=== PATIENT | female | born 1995 | race Caucasian/White ===

== ENCOUNTER 2016-10-04 23:15 | Emergency (ER) | payer MEDICAID ==
--- NOTE | 2016-10-05 01:35 | ER Document Report ---
ED General - General Chief Complaint: Vaginal Bleeding Stated Complaint: VAGINAL BLEEDING Mode of Arrival: Ambulatory Information source: Patient Notes: 21 yr old female who had a c section 8 week ago, placed on bcp 3 weeks ago presents iwth intermittent bleeding throughout the day. pt unable to see obgyn for another month. denies any severe pain , fevers TRAVEL OUTSIDE OF THE [place] IN LAST 30 DAYS: No - HPI Onset: Other Onset/Duration: Intermittent Quality of pain: Achy Severity: Mild Pain Level: 1 Associated symptoms: Other Exacerbated by: Denies Relieved by: Denies Similar symptoms previously: Yes Recently seen / treated by doctor: Yes - Related Data Allergies/Adverse Reactions: Penicillins Allergy (Severe, Verified 05/08/16 13:58) Anaphylaxis Sulfa (Sulfonamide Antibiotics) Allergy (Mild, Verified 05/08/16 13:58) Unknown reaction Past Medical History - Social History Smoking Status: Never Smoker Cigarette use (# per day): No Chew tobacco use (# tins/day): No Smoking Education Provided: No Frequency of alcohol use: None Drug Abuse: None Family History: Arthritis, DM, Hyperlipidemia, Hypertension, Malignancy, Thyroid Disfunction - Past Medical History Cardiac Medical History: Denies: Hx Hypertension, Hx Pulmonary Embolism, Hx Heart Murmur Pulmonary Medical History: Reports: Hx Asthma - prn inhaler, Hx Pneumonia - Pediatric Denies: Hx Sleep Apnea, Hx Tuberculosis Neurological Medical History: Denies: Hx Cerebrovascular Accident, Hx Seizures Endocrine Medical History: Denies: Hx Hyperthyroidism, Hx Hypothyroidism Renal/ Medical History: Reports: Hx Kidney Stones - in teen years. Denies: Hx Ovarian Cysts, Hx Peritoneal Dialysis, Hx Pelvic Inflammatory Disease Malignancy Medical History: Denies: Hx Breast Cancer, Hx Cervical Cancer, Hx Ovarian Cancer GI Medical History: Denies: Hx Gastroesophageal Reflux Disease, Hx Hiatal Hernia , Hx Ulcer Musculoskeltal Medical History: Denies Hx Fibromyalgia, Reports Hx Musculoskeletal Trauma Psychiatric Medical History: Reports: Hx Depression - hx of /not on meds during preg/to resume post Denies: Hx Bipolar Disorder, Hx Post Traumatic Stress Disorder, Hx Schizophrenia Traumatic Medical History: Denies: Hx Fractures Infectious Medical History: Denies: Hx HIV Past Surgical History: Reports: Hx Section - x2, Hx Cholecystectomy, Hx Orthopedic Surgery - right wrist surgery - Immunizations Immunizations up to date: Yes Hx Diphtheria, Pertussis, Tetanus Vaccination: Yes Review of Systems - Review of Systems Notes: REVIEW OF SYSTEMS: CONSTITUTIONAL : Denies fever, chills, or sweats. Denies recent illness. EENT: Denies eye, ear, throat, or mouth pain or symptoms. Denies nasal or sinus congestion or discharge. Denies throat, tongue, or mouth swelling or difficulty swallowing. CARDIOVASCULAR: Denies chest pain. Denies palpitations or racing or irregular heart beat. Denies ankle edema. RESPIRATORY: Denies cough, cold, or chest congestion. Denies shortness of breath, difficulty breathing, or wheezing. GASTROINTESTINAL: Denies abdominal pain or distention. Denies nausea, vomiting , or diarrhea. Denies blood in vomitus, stools, or per rectum. Denies black, tarry stools. Denies constipation. GENITOURINARY: Denies difficulty urinating, painful urination, burning, frequency, blood in urine, or discharge. FEMALE GENITOURINARY: admits to vaginal bleeding MUSCULOSKELETAL: Denies back or neck pain or stiffness. Denies joint pain or swelling. SKIN: Denies rash, lesions or sores. HEMATOLOGIC : Denies easy bruising or bleeding. LYMPHATIC: Denies swollen, enlarged glands. NEUROLOGICAL: Denies confusion or altered mental status. Denies passing out or loss of consciousness. Denies dizziness or lightheadedness. Denies headache. Denies weakness or paralysis or loss of use of either side. Denies problems with gait or speech. Denies sensory loss, numbness, or tingling. Denies seizures. PSYCHIATRIC: Denies anxiety or stress. Denies depression, suicidal ideation, or homicidal ideation. ALL OTHER SYSTEMS REVIEWED AND NEGATIVE. Dictation was performed using [employer] voice recognition software PHYSICAL EXAMINATION: GENERAL: Well-appearing, well-nourished and in no acute distress. HEAD: Atraumatic, normocephalic. EYES: Pupils equal round and reactive to light, extraocular movements intact, sclera anicteric, conjunctiva are normal. ENT: Nares patent, oropharynx clear without exudates. Moist mucous membranes. NECK: Normal range of motion, supple without lymphadenopathy LUNGS: Breath sounds clear to auscultation bilaterally and equal. No wheezes rales or rhonchi. HEART: Regular rate and rhythm without murmurs ABDOMEN: Soft, nontender, nondistended abdomen. No guarding, no rebound. No masses appreciated. Musculoskeletal: Normal range of motion, no pitting or edema. No cyanosis. NEUROLOGICAL: Cranial nerves grossly intact. Normal speech, normal gait. Normal sensory, motor exams PSYCH: Normal mood, normal affect. SKIN: Warm, Dry, normal turgor, no rashes or lesions noted. Physical Exam - Vital signs Vitals: Temp Pulse Resp BP Pulse Ox 97.8 F 65 20 116/55 L 98 10/04/16 23:52 10/04/16 23:52 10/04/16 23:52 10/04/16 23:52 10/04/16 23:52 Course - Re-evaluation Re-evalutation: 10/05/16 01:35 lab work imaging pending, i have low suspicion for retained products 10/05/16 03:32 Ultrasound noted no acute abnormality, hemoglobin is stable. Patient will be discharged to follow-up with [facility] After performing a Medical Screening Examination, I estimate there is LOW risk for ACUTE APPENDICITIS, BOWEL OBSTRUCTION, ACUTE CHOLECYSTITIS, PERFORATED DIVERTICULITIS, INCARCERATED HERNIA, PANCREATITIS, PELVIC INFLAMMATORY DISEASE, PERFORATED ULCER, ECTOPIC , or TUBO-OVARIAN ABSCESS, thus I consider the discharge disposition reasonable. Also, there is no evidence or peritonitis , sepsis, or toxicity. The patient and I have discussed the diagnosis and risks , and we agree with discharging home with close follow-up with the understanding that symptoms and presentations can change. We also discussed returning to the Emergency Department immediately if new or worsening symptoms occur. We have discussed the symptoms which are most concerning (e.g., bloody stool, fever, changing or worsening pain, vomiting) that necessitate immediate return. - Vital Signs Vital signs: Temp Pulse Resp BP Pulse Ox 97.8 F 65 20 116/55 L 98 10/04/16 23:52 10/04/16 23:52 10/04/16 23:52 10/04/16 23:52 10/04/16 23:52 - Laboratory Result Diagrams: 10/05/16 01:34 10/05/16 01:34 Laboratory results interpreted by me: 10/05/16 10/05/16 01:34 01:34 Hgb 10.5 L Hct 33.6 L MCH 25.1 L MCHC 31.3 L RDW 18.1 H Albumin 3.4 L - Diagnostic Test Radiology reviewed: Image reviewed, Reports reviewed Discharge - Discharge Clinical Impression: Vaginal bleeding Hypertension Qualifiers: Hypertension type: essential hypertension Qualified Code(s): I10 - Essential ( primary) hypertension Condition: Stable Disposition: HOME, SELF-CARE Instructions: Vaginal Bleeding ([facility]) Referrals: LUCHO MEEK MD [Primary Care Provider] - Follow up in 3-5 days
[2016-10-05 01:57] LABS: ABSOLUTE EOSINOPHILS # (AUTO) 0.3 10^3/uL (0.0-0.6); ABSOLUTE LYMPHOCYTES (AUTO) 3.8 10^3/uL (0.5-4.7); ABSOLUTE MONOCYTES (AUTO) 0.7 10^3/uL (0.1-1.4); ABSOLUTE NEUT (AUTO) 5.4 10^3/uL (1.7-8.2); BASOPHILS % (AUTO) 0.3 % (0-2); EOSINOPHILS % (AUTO) 2.8 % (0-6); HEMATOCRIT 33.6 % (36.0-47.0); HEMOGLOBIN 10.5 g/dL (12.0-15.5); HGB HCT DIFFERENCE -2.1; LYMPHOCYTES % (AUTO) 36.9 % (13-45); MEAN CORPUSCULAR HEMOGLOBIN 25.1 pg (27.0-33.4); MEAN CORPUSCULAR HGB CONC 31.3 g/dL (32.0-36.0); MEAN CORPUSCULAR VOLUME 80 fl (80-97); MONOCYTES % (AUTO) 6.5 % (3-13); RED CELL DISTRIBUTION WIDTH 18.1 % (11.5-14.0); SEGMENTED NEUTROPHILS % (AUTO) 53.5 % (42-78); WHITE BLOOD COUNT 10.2 10^3/uL (4.0-10.5)
[2016-10-05 02:02] LABS: ALANINE AMINOTRANSFERASE 25 U/L (9-52); ALBUMIN 3.4 g/dL (3.5-5.0); ALKALINE PHOSPHATASE 93 U/L (38-126); ANION GAP 11 (5-19); ASPARTATE AMINO TRANSFERASE 19 U/L (14-36); BILIRUBIN,TOTAL 0.2 mg/dL (0.2-1.3); BLOOD UREA NITROGEN 15 mg/dL (7-20); CALCIUM 9.1 mg/dL (8.4-10.2); CARBON DIOXIDE 29 mmol/L (22-30); CHLORIDE 102 mmol/L (98-107); GLUCOSE 79 mg/dL (75-110); POTASSIUM 3.9 mmol/L (3.6-5.0); SODIUM 142.4 mmol/L (137-145); TOTAL PROTEIN 6.6 g/dL (6.3-8.2)
[2016-10-05 04:39] VITALS: BP 114/64
== END 2016-10-05 04:38 | disposition home or self-care (01) ==
LOC: ER 23:15
DX: N93.9 Abnormal uterine and vaginal bleeding, unspecified (principal); I10 Essential (primary) hypertension
CPT/HCPCS: 36415; 76830; 80053; 84702; 85025; 99284

== ENCOUNTER 2016-10-26 19:35 | Emergency (ER) | payer MEDICAID ==
[2016-10-26] MEDS ORDERED: IBUPROFEN 800 MG TABLET PO ONE (19:46)
--- NOTE | 2016-10-26 19:46 | ER Document Report ---
ED Medical Screen (RME) - General Chief Complaint: Cold Symptoms Stated Complaint: SORE THROAT/WEAKNESS Time seen by provider: 19:43 Mode of Arrival: Ambulatory Information source: Patient Notes: 21-year-old female presents to ED for cold symptoms for week with sore throat. States she still eating and drinking fluids. States she's not had a period since 09/24/2069. States she started getting dizzy this morning. Complains of both ear went to urgent care about 2 weeks ago and was told she had fluid around her eardrums that she did not have an ear infection. States that the ears got better the pain went away within a few days ago the right ear started hurting again. I have greeted and performed a rapid initial assessment of this patient. A comprehensive ED assessment and evaluation of the patient, analysis of test results and completion of medical decision making process will be conducted by an additional ED providers. TRAVEL OUTSIDE OF THE [place] IN LAST 30 DAYS: No - Related Data Allergies/Adverse Reactions: Penicillins Allergy (Severe, Verified 10/26/16 19:41) Anaphylaxis Sulfa (Sulfonamide Antibiotics) Allergy (Mild, Verified 10/26/16 19:41) Unknown reaction Past Medical History - Past Medical History Cardiac Medical History: Denies: Hx Hypertension, Hx Pulmonary Embolism, Hx Heart Murmur Pulmonary Medical History: Reports: Hx Asthma - prn inhaler, Hx Pneumonia - Pediatric Denies: Hx Sleep Apnea, Hx Tuberculosis Neurological Medical History: Denies: Hx Cerebrovascular Accident, Hx Seizures Endocrine Medical History: Denies: Hx Hyperthyroidism, Hx Hypothyroidism Renal/ Medical History: Reports: Hx Kidney Stones - in teen years. Denies: Hx Ovarian Cysts, Hx Peritoneal Dialysis, Hx Pelvic Inflammatory Disease Malignancy Medical History: Denies: Hx Breast Cancer, Hx Cervical Cancer, Hx Ovarian Cancer GI Medical History: Denies: Hx Gastroesophageal Reflux Disease, Hx Hiatal Hernia , Hx Ulcer Musculoskeltal Medical History: Denies Hx Fibromyalgia, Reports Hx Musculoskeletal Trauma Psychiatric Medical History: Reports: Hx Depression - hx of /not on meds during preg/to resume post Denies: Hx Bipolar Disorder, Hx Post Traumatic Stress Disorder, Hx Schizophrenia Traumatic Medical History: Denies: Hx Fractures Infectious Medical History: Denies: Hx HIV Past Surgical History: Reports: Hx Section - x2, Hx Cholecystectomy, Hx Oral Surgery - WISDOM, Hx Orthopedic Surgery - right wrist surgery - Immunizations Immunizations up to date: Yes Hx Diphtheria, Pertussis, Tetanus Vaccination: Yes Physical Exam - Vital signs Vitals: Temp Pulse Resp BP Pulse Ox 98.0 F 95 19 125/70 98 10/26/16 19:39 10/26/16 19:39 10/26/16 19:39 10/26/16 19:39 10/26/16 19:39 Course - Vital Signs Vital signs: Temp Pulse Resp BP Pulse Ox 98.0 F 95 19 125/70 98 10/26/16 19:39 10/26/16 19:39 10/26/16 19:39 10/26/16 19:39 10/26/16 19:39
--- NOTE | 2016-10-26 20:22 | ER Document Report ---
ED General - General Chief Complaint: Sore Throat Stated Complaint: SORE THROAT/WEAKNESS Time seen by provider: 20:20 Mode of Arrival: Ambulatory Information source: Patient Notes: This is a 21-year-old female that presents to the emergency room with nonproductive cough, right ear pain, sore throat, weakness and dizziness. Patient states that the weakness and dizziness started today. She denies headache, neck stiffness, photophobia. TRAVEL OUTSIDE OF THE [place] IN LAST 30 DAYS: No - HPI Onset: Just prior to arrival Onset/Duration: Gradual Quality of pain: No pain Severity: None Pain Level: Denies Associated symptoms: Chills, Fever, Other - Right earache. denies: Shortness of breath Exacerbated by: Denies Relieved by: Denies Similar symptoms previously: No Recently seen / treated by doctor: Yes - Related Data Allergies/Adverse Reactions: Penicillins Allergy (Severe, Verified 10/26/16 19:41) Anaphylaxis Sulfa (Sulfonamide Antibiotics) Allergy (Mild, Verified 10/26/16 19:41) Unknown reaction Past Medical History - General Information source: Patient - Social History Smoking Status: Never Smoker Cigarette use (# per day): No Chew tobacco use (# tins/day): No Frequency of alcohol use: None Drug Abuse: None Lives with: Family Family History: Arthritis, DM, Hyperlipidemia, Hypertension, Malignancy, Thyroid Disfunction Patient has suicidal ideation: No Patient has homicidal ideation: No - Past Medical History Cardiac Medical History: Denies: Hx Hypertension, Hx Pulmonary Embolism, Hx Heart Murmur Pulmonary Medical History: Reports: Hx Asthma - prn inhaler, Hx Pneumonia - Pediatric Denies: Hx Sleep Apnea, Hx Tuberculosis Neurological Medical History: Denies: Hx Cerebrovascular Accident, Hx Seizures Endocrine Medical History: Denies: Hx Hyperthyroidism, Hx Hypothyroidism Renal/ Medical History: Reports: Hx Kidney Stones - in teen years. Denies: Hx Ovarian Cysts, Hx Peritoneal Dialysis, Hx Pelvic Inflammatory Disease Malignancy Medical History: Denies: Hx Breast Cancer, Hx Cervical Cancer, Hx Ovarian Cancer GI Medical History: Denies: Hx Gastroesophageal Reflux Disease, Hx Hiatal Hernia , Hx Ulcer Musculoskeltal Medical History: Denies Hx Fibromyalgia, Reports Hx Musculoskeletal Trauma Psychiatric Medical History: Reports: Hx Depression - hx of /not on meds during preg/to resume post Denies: Hx Bipolar Disorder, Hx Post Traumatic Stress Disorder, Hx Schizophrenia Traumatic Medical History: Denies: Hx Fractures Infectious Medical History: Denies: Hx HIV Past Surgical History: Reports: Hx Section - x2, Hx Cholecystectomy, Hx Oral Surgery - WISDOM, Hx Orthopedic Surgery - right wrist surgery - Immunizations Immunizations up to date: Yes Hx Diphtheria, Pertussis, Tetanus Vaccination: Yes Review of Systems - Review of Systems Notes: Review of systems: Constitutional: Positive for chills, denies fever (patient states she rarely if ever gets fever). EENT: Positive for right ear pain and sinus congestion. Positive for throat pain. She denies any difficulty swallowing. Cardiovascular: Denies chest pain, palpitations, dyspnea or edema. Respiratory: Denies wheezing, cough, hemoptysis. Abdomen: Denies abdominal pain, nausea, vomiting, diarrhea. Denies BRBPR or melena. Genitourinary: Denies dysuria, pyuria, hematuria, flank pain. Musculoskeletal: denies joint pain or swelling, denies back pain. Neurologic: Denies headache, photophobia, neck stiffness, weakness. Denies loss of bowel or bladder function. Denies saddle anesthesia. Skin: Denies rash, lesions. Physical Exam - Vital signs Vitals: Temp Pulse Resp BP Pulse Ox 98.0 F 95 19 125/70 98 10/26/16 19:39 10/26/16 19:39 10/26/16 19:39 10/26/16 19:39 10/26/16 19:39 Notes: Physical exam: GENERAL: 21-year-old female, alert and oriented 3, no acute distress HEAD: Atraumatic, normocephalic. EYES: Pupils equal round and reactive to light, extraocular movements intact, sclera anicteric, conjunctiva are normal. ENT: Left TM normal, right TM is erythematous and cloudy with some bulging, nares patent, oropharynx mildly erythematous without exudates. Moist mucous membranes. NECK: Normal range of motion, supple without lymphadenopathy or JVD. LUNGS: Breath sounds clear to auscultation bilaterally and equal. No wheezes rales or rhonchi. HEART: Regular rate and rhythm without murmurs, rubs or gallops. ABDOMEN: Soft, normoactive bowel sounds. No tenderness to palpation. No guarding, no rebound. No masses appreciated. EXTREMITIES: Normal range of motion, no pitting or edema. No clubbing or cyanosis. NEUROLOGICAL: Cranial nerves II through XII grossly intact. Normal speech, normal gait. PSYCH: Normal mood, normal affect. SKIN: Warm, Dry, normal turgor, no rashes or lesions noted. Course - Vital Signs Vital signs: Temp Pulse Resp BP Pulse Ox 98.4 F 87 20 133/66 H 99 10/26/16 23:25 10/26/16 23:25 10/26/16 23:25 10/26/16 23:25 10/26/16 23:25 - Laboratory Laboratory results interpreted by me: 10/26/16 20:50 Urine Ketones TRACE H Ur Leukocyte Esterase TRACE H Discharge - Discharge Clinical Impression: right otitis media Condition: Stable Disposition: HOME, SELF-CARE Additional Instructions: Recommendations: Rest, drink plenty of fluids May take Mucinex [id number] Azithromycin as prescribed Follow-up with your primary care doctor in the next 3-5 days. Return to the emergency room for any worsening pain or concerns he getting worse. Prescriptions: Azithromycin [Zithromax 250 mg Tablet] 250 mg PO ASDIR PRN #6 tablet PRN Reason: Referrals: LUCHO MEEK MD [Primary Care Provider] - Follow up as needed
[2016-10-26 22:04] LABS: APPEARANCE,URINE SLIGHTLY-CLOUDY; BILIRUBIN,URINE NEGATIVE (NEGATIVE); GLUCOSE, URINE NEGATIVE (NEGATIVE); KETONES,URINE TRACE mg/dL (NEGATIVE); LEUKOCYTE ESTERASE,URINE TRACE (NEGATIVE); NITRITE,URINE NEGATIVE (NEGATIVE); PROTEIN,URINE NEGATIVE (NEGATIVE); URINE SPECIFIC GRAVITY 1.024; UROBILINOGEN,URINE NEGATIVE mg/dL (<2.0)
[2016-10-26] MEDS ORDERED: AZITHROMYCIN 250 MG TABLET PO ONE (22:55)
[2016-10-26 23:26] VITALS: BP 133/66
== END 2016-10-26 23:17 | disposition home or self-care (01) ==
LOC: ER 19:35
DX: H66.91 Otitis media, unspecified, right ear (principal); R05 Cough; J02.9 Acute pharyngitis, unspecified; H92.01 Otalgia, right ear; R53.1 Weakness; R42 Dizziness and giddiness; R09.81 Nasal congestion; R68.83 Chills (without fever); J45.909 Unspecified asthma, uncomplicated; Z88.2 Allergy status to sulfonamides; Z87.892 Personal history of anaphylaxis; Z88.0 Allergy status to penicillin; Z87.01 Personal history of pneumonia (recurrent)
CPT/HCPCS: 99283; 36415; 87070; 87880; 81025; 86308; 81001; 87804; Q0144; J3490

== ENCOUNTER 2016-11-09 20:51 | Emergency (ER) | payer MEDICAID ==
[2016-11-09 21:50] VITALS: BP 134/76
== END 2016-11-09 23:40 | disposition left against medical advice (07) ==
LOC: ER 20:51
DX: Z53.9 Procedure and treatment not carried out, unspecified reason (principal); R06.02 Shortness of breath

== ENCOUNTER 2016-11-10 20:59 | Emergency (ER) | payer MEDICAID ==
[2016-11-10] MEDS ORDERED: PREDNISONE 20 MG TABLET PO ONE (23:12)
--- NOTE | 2016-11-10 23:12 | ER Document Report ---
ED Medical Screen (RME) - General Stated Complaint: BREATHING DIFFICULTY Time seen by provider: 23:10 Mode of Arrival: Ambulatory Information source: Patient Notes: 21-year-old female presents to ED for difficulty breathing tight chest. She states that she has been sick for 2 weeks. She is wheezing in the rapid medical evaluation she has a history of asthma. States she's been out of her albuterol for couple months. Last menstrual period 11/05/2016 states she does not smoke I have greeted and performed a rapid initial assessment of this patient. A comprehensive ED assessment and evaluation of the patient, analysis of test results and completion of medical decision making process will be conducted by an additional ED providers. TRAVEL OUTSIDE OF THE [place] IN LAST 30 DAYS: No - Related Data Allergies/Adverse Reactions: Penicillins Allergy (Severe, Verified 11/10/16 23:09) Anaphylaxis Sulfa (Sulfonamide Antibiotics) Allergy (Mild, Verified 11/10/16 23:09) Unknown reaction Past Medical History - Past Medical History Cardiac Medical History: Denies: Hx Hypertension, Hx Pulmonary Embolism, Hx Heart Murmur Pulmonary Medical History: Reports: Hx Asthma - prn inhaler, Hx Pneumonia - Pediatric Denies: Hx Sleep Apnea, Hx Tuberculosis Neurological Medical History: Denies: Hx Cerebrovascular Accident, Hx Seizures Endocrine Medical History: Denies: Hx Hyperthyroidism, Hx Hypothyroidism Renal/ Medical History: Reports: Hx Kidney Stones - in teen years. Denies: Hx Ovarian Cysts, Hx Peritoneal Dialysis, Hx Pelvic Inflammatory Disease Malignancy Medical History: Denies: Hx Breast Cancer, Hx Cervical Cancer, Hx Ovarian Cancer GI Medical History: Denies: Hx Gastroesophageal Reflux Disease, Hx Hiatal Hernia , Hx Ulcer Musculoskeltal Medical History: Denies Hx Fibromyalgia, Reports Hx Musculoskeletal Trauma Psychiatric Medical History: Reports: Hx Depression - hx of /not on meds during preg/to resume post Denies: Hx Bipolar Disorder, Hx Post Traumatic Stress Disorder, Hx Schizophrenia Traumatic Medical History: Denies: Hx Fractures Infectious Medical History: Denies: Hx HIV Past Surgical History: Reports: Hx Section - x2, Hx Cholecystectomy, Hx Oral Surgery - WISDOM, Hx Orthopedic Surgery - right wrist surgery - Immunizations Immunizations up to date: Yes Hx Diphtheria, Pertussis, Tetanus Vaccination: Yes Physical Exam - Vital signs Vitals: Temp Pulse Resp BP Pulse Ox 98.0 F 84 18 127/54 H 96 11/10/16 22:06 11/10/16 22:06 11/10/16 22:06 11/10/16 22:06 11/10/16 22:06 Course - Vital Signs Vital signs: Temp Pulse Resp BP Pulse Ox 98.0 F 84 18 127/54 H 96 11/10/16 22:06 11/10/16 22:06 11/10/16 22:06 11/10/16 22:06 11/10/16 22:06
[2016-11-10] MEDS ORDERED: IPRATROPIUM/ALBUTEROL 0.5-2.5 MG/3 ML AMPUL NEB ONE (23:13)
[2016-11-10] MEDS ORDERED: ALBUTEROL SULFATE 0.083% NEB 2.5 MG/3 ML AMPUL NEB SCH (23:15)
--- NOTE | 2016-11-11 03:29 | ER Document Report ---
ED Respiratory Problem - General Chief Complaint: Breathing Difficulty Stated Complaint: BREATHING DIFFICULTY Time seen by provider: 03:26 Mode of Arrival: Ambulatory Information source: Patient Notes: 20-year-old female presented to ED for difficulty breathing was tight chest. She states she's been sick for 2 weeks and then today just today she started with the wheezing and difficulty getting a deep breath. She states she's been out of albuterol for couple months. Her last menstrual period was 11/05/2016. TRAVEL OUTSIDE OF THE [place] IN LAST 30 DAYS: No - HPI Patient complains to provider of: Asthma Onset: Yesterday Duration: Better Initiating Event: URI Quality of pain: No pain Severity: None Pain Level: Denies Context: Hx asthma Cough: Nonproductive Sputum amount: None Associated symptoms: Congestion, Cough, Runny nose, Wheezing - Wheezing when seen in RME when I saw her in the emergency room. Wheezing was cleared she states she was breathing freely no cough and Similar symptoms previously: Yes Recently seen / treated by doctor: No - Related Data Allergies/Adverse Reactions: Penicillins Allergy (Severe, Verified 11/10/16 23:09) Anaphylaxis Sulfa (Sulfonamide Antibiotics) Allergy (Mild, Verified 11/10/16 23:09) Unknown reaction Past Medical History - General Information source: Patient - Social History Smoking Status: Former Smoker Cigarette use (# per day): No Chew tobacco use (# tins/day): No Smoking Education Provided: No Frequency of alcohol use: None Drug Abuse: None Occupation: none Lives with: Spouse/Significant other Family History: Arthritis, DM, Hyperlipidemia, Hypertension, Malignancy, Thyroid Disfunction Patient has suicidal ideation: No Patient has homicidal ideation: No - Past Medical History Cardiac Medical History: Reports: None Pulmonary Medical History: Reports: Hx Asthma - prn inhaler, Hx Pneumonia - Pediatric EENT Medical History: Reports: None Neurological Medical History: Reports: None Endocrine Medical History: Reports: None Renal/ Medical History: Reports: Hx Kidney Stones - in teen years Malignancy Medical History: Reports: None GI Medical History: Reports: None Musculoskeltal Medical History: Reports Hx Musculoskeletal Trauma Skin Medical History: Reports None Psychiatric Medical History: Reports: Hx Depression - hx of /not on meds during preg/to resume post Traumatic Medical History: Reports: None Infectious Medical History: Reports: None Past Surgical History: Reports: Hx Section - x2, Hx Cholecystectomy, Hx Oral Surgery - WISDOM, Hx Orthopedic Surgery - right wrist surgery - Immunizations Immunizations up to date: Yes Hx Diphtheria, Pertussis, Tetanus Vaccination: Yes Review of Systems - Review of Systems Constitutional: No symptoms reported EENT: Nose discharge Cardiovascular: No symptoms reported Respiratory: Cough, Wheezing Gastrointestinal: No symptoms reported Genitourinary: No symptoms reported Female Genitourinary: No symptoms reported Musculoskeletal: No symptoms reported Skin: No symptoms reported Hematologic/Lymphatic: No symptoms reported Neurological/Psychological: No symptoms reported Physical Exam - Vital signs Vitals: Temp Pulse Resp BP Pulse Ox 98.0 F 84 18 127/54 H 96 11/10/16 22:06 11/10/16 22:06 11/10/16 22:06 11/10/16 22:06 11/10/16 22:06 Interpretation: Normal - General General appearance: Appears well, Alert - HEENT Head: Normocephalic, Atraumatic Eyes: Normal Pupils: PERRL Ears: Normal External canal: Normal Tympanic membrane: Normal Sinus: Normal Nasal: Swelling, Clear rhinorrhea Mouth/Lips: Normal Mucous membranes: Normal Pharynx: Normal Neck: Normal - Respiratory Respiratory status: No respiratory distress Chest status: Nontender Breath sounds: Wheezing - When seen in E she was wheezing very tight when seen in the emergency room he lungs are clear respirations regular even Chest palpation: Normal - Cardiovascular Rhythm: Regular Heart sounds: Normal auscultation Murmur: No - Abdominal Inspection: Normal Distension: No distension Bowel sounds: Normal Tenderness: Nontender Organomegaly: No organomegaly - Back Back: Normal, Nontender - Extremities General upper extremity: Normal inspection, Nontender, Normal color, Normal ROM , Normal temperature General lower extremity: Normal inspection, Nontender, Normal color, Normal ROM , Normal temperature, Normal weight bearing. No: [place]'s sign - Neurological Neuro grossly intact: Yes Cognition: Normal Orientation: AAOx4 Fabius Coma Scale Eye Opening: Spontaneous Tegan Coma Scale Verbal: Oriented Fabius Coma Scale Motor: Obeys Commands Fabius Coma Scale Total: 15 Speech: Normal Motor strength normal: LUE, RUE, LLE, RLE Sensory: Normal - Psychological Associated symptoms: Normal affect, Normal mood - Skin Skin Temperature: Warm Skin Moisture: Dry Skin Color: Normal Course - Vital Signs Vital signs: Temp Pulse Resp BP Pulse Ox 97.8 F 85 20 121/61 98 11/11/16 03:39 11/11/16 03:39 11/11/16 03:39 11/11/16 03:39 11/11/16 03:39 Discharge - Discharge Clinical Impression: Asthma Qualifiers: Asthma severity: unspecified severity Asthma complication type: with acute exacerbation Qualified Code(s): J45.901 - Unspecified asthma with (acute) exacerbation Condition: Stable Disposition: HOME, SELF-CARE Additional Instructions: ASTHMA: You have been diagnosed as having asthma. This is a condition where there is episodic tightness in the bronchial tubes. Allergies, infections, and polluted or cold air may be contributing factors. Emergency treatment of a severe asthma attack may include adrenaline shots , or bronchodilator aerosol. You may feel lightheaded, have a decreased exercise tolerance and a rapid pulse for an hour or two. Rest and get plenty of fluids. Home treatment of asthma requires bronchodilator drugs. These can be administered by injection, inhalation, or by mouth. Antibiotics and corticosteroids may be required for some patients. You should avoid chemical fumes, dusts, pollens, and exercising in very cold or dry air. If you smoke, stop!! If you develop a fever, increased wheezing, chest pain, or severe shortness of breath, you should contact the doctor immediately. STEROID MEDICATION: You have been given an injection of or oral medicine of the cortisone/ steroid class. This medication is used to control inflammation or allergy. David t is usually only given for a short period of time, until the acute process subsides. There are usually no side effects from short-term use of cortisone-like medications. Some persons feel an increased sense of well-being and are not sleepy at bedtime. Long-term use of cortisone medications is best avoided, unless required for a severe condition. If your condition does not remit, or relapses after the course of corticosteroid medication, you should consult your physician. INHALED BRONCHODILATORS: You have received treatment(s) of and/or prescription for an inhaled bronchodilator -- a medication which stimulates the airways in the lung to dilate. This improves the flow of air in asthma, bronchitis, and emphysema. These medicines have some similarity to adrenaline, and can cause similar side effects: shakiness, racing heart, and a sense of nervousness. These side effects decrease with time. Contact your doctor if these side effects are severe. Do not over-use the medicine. Too-frequent use of the inhaler may make it ineffective. Call your doctor if the inhaler is not controlling your symptoms at the prescribed doses. USE OF ACETAMINOPHEN (Tylenol): Acetaminophen may be taken for pain relief or fever control. It's much safer than aspirin, offering a wider range of "safe" dosages. It is safe during . Some brand names are Tylenol, Panadol, Datril, Anacin 3, Tempra, and Liquiprin. Acetaminophen can be repeated every four hours. The following are maximum recommended dosages: WEIGHT Dose Drops Elixir Chewable( 80mg) (LBS.) drprs=droppers tsp=teaspoon 6 40 mg 0.4 ml (1/2) 6-11 80 mg 0.8 ml (full) tsp 1 tab 12-16 120 mg 1 1/2 drprs 3/4 tsp 1 1/2 tabs 17-23 160 mg 2 drprs 1 tsp 2 tabs 24-30 240 mg 3 drprs 1 1/2 tsp 3 tabs 30-35 320 mg 2 tsp 4 tabs 36-41 360 mg 2 1/4 tsp 4 1/2 tabs 42-47 400 mg 2 1/2 tsp 5 tabs 48-53 480 mg 3 tsp 6 tabs 54-59 520 mg 3 1/4 tsp 6 1/2 tabs 60-64 560 mg 3 1/2 tsp 7 tabs 65-70 600 mg 3 3/4 tsp 7 1/2 tabs 71-76 640 mg 4 tsp 8 tabs 77-82 720 mg 4 1/2 tsp 9 tabs 83-88 800 mg 5 tsp 10 tabs >89 pounds or adults 650 mg to 900 mg Acetaminophen can be repeated every four hours. Maximum dose not to exceed 4000 mg a day. These maximum recommended dosages are slightly higher than the dosages written on the product container, but these dosages are very safe and below the toxic dosage for acetaminophen. FOLLOW-UP CARE: If you have been referred to a physician for follow-up care, call the physician s office for an appointment as you were instructed or within the next two days. If you experience worsening or a significant change in your symptoms, notify the physician immediately or return to the Emergency Department at any time for re-evaluation. Prescriptions: Albuterol Sulfate [Proair HFA Inhalation Aerosol 8.5 gm MDI] 2 puff IH Q4H PRN # 1 mdi PRN Reason: Prednisone [Sterapred Ds] 1 pkg PO ASDIR PRN 12 Days PRN Reason: Referrals: LUCHO MEEK MD [Primary Care Provider] - Follow up as needed
[2016-11-11 03:40] VITALS: BP 121/61
== END 2016-11-11 03:35 | disposition home or self-care (01) ==
LOC: ER 20:59
DX: J45.901 Unspecified asthma with (acute) exacerbation (principal); R06.02 Shortness of breath; R09.81 Nasal congestion; R05 Cough; R09.89 Other specified symptoms and signs involving the circulatory and respiratory systems; Z87.891 Personal history of nicotine dependence
CPT/HCPCS: 94640 ×2; 99284; J7512; J7620

== ENCOUNTER 2016-12-18 09:58 | Emergency (ER) | payer MEDICAID ==
[2016-12-18 10:09] VITALS: BP 114/74
--- NOTE | 2016-12-18 10:24 | ER Document Report ---
ED Medical Screen (RME) - General TRAVEL OUTSIDE OF THE [place] IN LAST 30 DAYS: No - General Stated Complaint: TOOTH PAIN Notes: 21 yo female c/o dental pain x 3 days. pain to right lower tooth. waiting for dental appointment. had appointment tomorrow but has to work and cant make appointment (NINOSKA JENKINS) - Related Data Allergies/Adverse Reactions: Penicillins Allergy (Severe, Verified 12/18/16 10:21) Anaphylaxis Sulfa (Sulfonamide Antibiotics) Allergy (Mild, Verified 12/18/16 10:21) Unknown reaction Past Medical History - Past Medical History Cardiac Medical History: Denies: Hx Hypertension, Hx Pulmonary Embolism, Hx Heart Murmur Pulmonary Medical History: Reports: Hx Asthma - prn inhaler, Hx Pneumonia - Pediatric Denies: Hx Sleep Apnea, Hx Tuberculosis Neurological Medical History: Denies: Hx Cerebrovascular Accident, Hx Seizures Endocrine Medical History: Denies: Hx Hyperthyroidism, Hx Hypothyroidism Renal/ Medical History: Reports: Hx Kidney Stones - in teen years. Denies: Hx Ovarian Cysts, Hx Peritoneal Dialysis, Hx Pelvic Inflammatory Disease Malignancy Medical History: Denies: Hx Breast Cancer, Hx Cervical Cancer, Hx Ovarian Cancer GI Medical History: Denies: Hx Gastroesophageal Reflux Disease, Hx Hiatal Hernia , Hx Ulcer Musculoskeltal Medical History: Denies Hx Fibromyalgia, Reports Hx Musculoskeletal Trauma Psychiatric Medical History: Reports: Hx Depression - hx of /not on meds during preg/to resume post Denies: Hx Bipolar Disorder, Hx Post Traumatic Stress Disorder, Hx Schizophrenia Traumatic Medical History: Denies: Hx Fractures Infectious Medical History: Denies: Hx HIV Past Surgical History: Reports: Hx Section - x2, Hx Cholecystectomy, Hx Oral Surgery - WISDOM, Hx Orthopedic Surgery - right wrist surgery - Immunizations Immunizations up to date: Yes Hx Diphtheria, Pertussis, Tetanus Vaccination: Yes Doctor's Discharge - Discharge Clinical Impression: Toothache Condition: Stable Disposition: HOME, SELF-CARE Additional Instructions: TOOTHACHE: Your pain is due to dental decay. The tooth must be repaired in order for you to feel better. You will, therefore, be referred to a dentist. We do not have dentists on the staff at [facility]. Severe swelling or drainage around a tooth usually means a dental abscess. This also requires evaluation and treatment by the dentist, but antibiotics may be prescribed while awaiting dental treatment. You should be rechecked immediately if you develop major swelling of the face, increasing pain, a lump in the jaw or gums, headache, difficulty swallowing, or fever. ORAL NARCOTIC MEDICATION: You have been given a prescription for pain control. This medication is a narcotic. It's best taken with food, as nausea can result if taken on an empty stomach. Don't operate machinery or drive within six hours of taking this medication. Do not combine this medicine with alcohol, or with any medication which can cause sedation (such as cold tablets or sleeping pills) unless you get permission from the physician. Narcotics tend to cause constipation. If possible, drink plenty of fluids and eat a diet high in fiber and fruits. Please be aware that prescription narcotics also have the potential for abuse. People become addicted to these medications because of the general sense of wellbeing that they induce. This feeling along with a significant reduction in tension, anxiety, and aggression provides a stimulating seductive quality to these drugs. Once your pain is under control, we encourage you to discard your unused narcotics. CLINDAMYCIN: You have been given a prescription for the antibiotic clindamycin. It is often prescribed for infections in the mouth, such as dental infections or abscesses, and for skin infections due to MRSA. It's important that you take all the medication, unless instructed otherwise by your physician. Failure to complete the entire course can result in relapse of your condition. Common side effects of antibiotics include nausea, intestinal cramping, or diarrhea. Women may develop vaginal yeast infections, and babies can get yeast (thrush) in the mouth following the use of antibiotics. Contact your physician if you develop significant side effects from this medication. Allergy to this antibiotic can result in hives, wheezing, faintness, or itching. If symptoms of allergy occur, stop the medication and call the doctor. FOLLOW-UP CARE: You have been referred for follow-up care to the dentists listed below. Call the dentists office for an appointment as you were instructed or within the next two days. If you experience worsening or a significant change in your symptoms, notify the physician immediately or return to the Emergency Department at any time for re-evaluation. [facility] [address] [place] [address] [facility] [address] [facility] [address] [email or web address] [address] [place] [address] Friday- 8:00am to 5:00 pm Will see patients from other [facility]. Charges based on income and family size and accepts Medicare, Medicaid, and Insurances Will pull molars COUNT INCLUDES THE [facility] [address] Hours of Operation 8:00 am - 4:30 pm weekdays The following dental offices accept Medicaid: [facility] Dr. Lee Dr. Matias Dr. Lopez Dr. Smith Raoul Gallego Lutsavage, and Krist[facility] oral surgery Dr. Uribe ([place]) Dr. Bellamy ([place]) [facility] Drs. Bhakta and Antonio ([place]) Dr. Josue ([place]) [facility] Dr. Dey ([place]) Drs. Garza and ([place]) Medicaid Care Line Prescriptions: Hydrocodone/Acetaminophen [[place] 5-325 mg Tablet] 1 tab PO Q6HP PRN #14 tablet PRN Reason: Clindamycin HCl [Cleocin HCl] 300 mg PO Q6 #28 capsule Forms: Return to Work Referrals: LUCHO MEEK MD [Primary Care Provider] - Follow up as needed
[2016-12-18] MEDS ORDERED: CLINDAMYCIN HCL 150 MG CAPSULE PO ONE (11:12)
--- NOTE | 2016-12-18 11:17 | ER Document Report ---
ED Oral Problem - General Time seen by provider: 11:12 Mode of Arrival: Ambulatory Information source: Patient TRAVEL OUTSIDE OF THE U.S. IN LAST 30 DAYS: No - HPI Patient complains to provider of: Toothache Onset: Other - 3 days this time but the pain has been there for a while Quality of pain: Sharp, Throbbing Severity: Moderate Pain Level: 4 Associated symptoms: Toothache Worsened by: Cold Similar symptoms previously: Yes Recently seen / treated by doctor/dentist: No - General Chief Complaint: Toothache Stated Complaint: TOOTH PAIN Notes: 21-year-old female presents to ED for dental pain 3 day. Pain in the right lower jaw. Written for dental had an appointment for tomorrow but states he cannot go because does not have the money. (SELENA EDWARDS) - Related Data Allergies/Adverse Reactions: Penicillins Allergy (Severe, Verified 12/18/16 10:21) Anaphylaxis Sulfa (Sulfonamide Antibiotics) Allergy (Mild, Verified 12/18/16 10:21) Unknown reaction Past Medical History - General Information source: Patient - Social History Smoking Status: Former Smoker Cigarette use (# per day): No Chew tobacco use (# tins/day): No Smoking Education Provided: No Frequency of alcohol use: Occasional Drug Abuse: None Lives with: Family Family History: Arthritis, DM, Hyperlipidemia, Hypertension, Malignancy, Thyroid Disfunction Patient has suicidal ideation: No Patient has homicidal ideation: No - Past Medical History Cardiac Medical History: Reports: None Pulmonary Medical History: Reports: Hx Asthma - prn inhaler, Hx Pneumonia - Pediatric EENT Medical History: Reports: None Neurological Medical History: Reports: None Endocrine Medical History: Reports: None Renal/ Medical History: Reports: Hx Kidney Stones - in teen years Malignancy Medical History: Reports: None GI Medical History: Reports: None Musculoskeltal Medical History: Reports Hx Musculoskeletal Trauma Skin Medical History: Reports None Psychiatric Medical History: Reports: Hx Depression - hx of /not on meds during preg/to resume post Traumatic Medical History: Reports: None Infectious Medical History: Reports: None Past Surgical History: Reports: Hx Section - x2, Hx Cholecystectomy, Hx Oral Surgery - WISDOM, Hx Orthopedic Surgery - right wrist surgery - Immunizations Immunizations up to date: Yes Hx Diphtheria, Pertussis, Tetanus Vaccination: Yes Review of Systems - Review of Systems Constitutional: No symptoms reported EENT: Dental problem Cardiovascular: No symptoms reported Respiratory: No symptoms reported Gastrointestinal: No symptoms reported Genitourinary: No symptoms reported Female Genitourinary: No symptoms reported Musculoskeletal: No symptoms reported Skin: No symptoms reported Hematologic/Lymphatic: No symptoms reported Neurological/Psychological: No symptoms reported -: Yes All other systems reviewed and negative Physical Exam - Vital signs Interpretation: Normal - General General appearance: Appears well, Alert - HEENT Head: Normocephalic, Atraumatic Eyes: Normal Pupils: PERRL Ears: Normal External canal: Normal Tympanic membrane: Normal Sinus: Normal Nasal: Normal Mouth/Lips: Caries Teeth diagram: 1 - Dental cavity that she has not taking care of and had a dental appointment for tomorrow but is not able to make due to she does not have the money to pay for it. Pharynx: Normal Neck: Normal - Respiratory Respiratory status: No respiratory distress Chest status: Nontender Breath sounds: Normal Chest palpation: Normal - Cardiovascular Rhythm: Regular Heart sounds: Normal auscultation Murmur: No - Abdominal Inspection: Normal Distension: No distension Bowel sounds: Normal Tenderness: Nontender Organomegaly: No organomegaly - Back Back: Normal, Nontender - Extremities General upper extremity: Normal inspection, Nontender, Normal color, Normal ROM , Normal temperature General lower extremity: Normal inspection, Nontender, Normal color, Normal ROM , Normal temperature, Normal weight bearing. No: Mali's sign - Neurological Neuro grossly intact: Yes Cognition: Normal Orientation: AAOx4 Tgean Coma Scale Eye Opening: Spontaneous Commodore Coma Scale Verbal: Oriented Tegan Coma Scale Motor: Obeys Commands Commodore Coma Scale Total: 15 Speech: Normal Motor strength normal: LUE, RUE, LLE, RLE Sensory: Normal - Psychological Associated symptoms: Normal affect, Normal mood - Skin Skin Temperature: Warm Skin Moisture: Dry Skin Color: Normal Discharge - Discharge Clinical Impression: Toothache Condition: Stable Disposition: HOME, SELF-CARE Additional Instructions: TOOTHACHE: Your pain is due to dental decay. The tooth must be repaired in order for you to feel better. You will, therefore, be referred to a dentist. We do not have dentists on the staff at [facility]. Severe swelling or drainage around a tooth usually means a dental abscess. This also requires evaluation and treatment by the dentist, but antibiotics may be prescribed while awaiting dental treatment. You should be rechecked immediately if you develop major swelling of the face, increasing pain, a lump in the jaw or gums, headache, difficulty swallowing, or fever. ORAL NARCOTIC MEDICATION: You have been given a prescription for pain control. This medication is a narcotic. It's best taken with food, as nausea can result if taken on an empty stomach. Don't operate machinery or drive within six hours of taking this medication. Do not combine this medicine with alcohol, or with any medication which can cause sedation (such as cold tablets or sleeping pills) unless you get permission from the physician. Narcotics tend to cause constipation. If possible, drink plenty of fluids and eat a diet high in fiber and fruits. Please be aware that prescription narcotics also have the potential for abuse. People become addicted to these medications because of the general sense of wellbeing that they induce. This feeling along with a significant reduction in tension, anxiety, and aggression provides a stimulating seductive quality to these drugs. Once your pain is under control, we encourage you to discard your unused narcotics. CLINDAMYCIN: You have been given a prescription for the antibiotic clindamycin. It is often prescribed for infections in the mouth, such as dental infections or abscesses, and for skin infections due to MRSA. It's important that you take all the medication, unless instructed otherwise by your physician. Failure to complete the entire course can result in relapse of your condition. Common side effects of antibiotics include nausea, intestinal cramping, or diarrhea. Women may develop vaginal yeast infections, and babies can get yeast (thrush) in the mouth following the use of antibiotics. Contact your physician if you develop significant side effects from this medication. Allergy to this antibiotic can result in hives, wheezing, faintness, or itching. If symptoms of allergy occur, stop the medication and call the doctor. FOLLOW-UP CARE: You have been referred for follow-up care to the dentists listed below. Call the dentists office for an appointment as you were instructed or within the next two days. If you experience worsening or a significant change in your symptoms, notify the physician immediately or return to the Emergency Department at any time for re-evaluation. [facility] [address] [place] [address] [facility] [address] [facility] [address] [facility] Emergency Department [facility] [address] [email or web address] [address] [place] [address] Friday- 8:00am to 5:00 pm Will see patients from other [facility]. Charges based on income and family size and accepts Medicare, Medicaid, and Insurances Will pull molars [facility] [address] Hours of Operation 8:00 am - 4:30 pm weekdays The following dental offices accept Medicaid: [facility] [address] Matias Dr[address] Lopez Dr. Smith Raoul Gallego [place], and [facility] Dr. Uribe ([place]) Dr. Bellamy ([place]) [facility] Drs. Bhakta and Antonio ([employer]) Dr. Josue ([employer]) [facility] Dr. Dey ([place]) Drs. Garza and ([place]) Medicaid Care Line Prescriptions: Hydrocodone/Acetaminophen [Wirt 5-325 mg Tablet] 1 tab PO Q6HP PRN #14 tablet PRN Reason: Clindamycin HCl [Cleocin HCl] 300 mg PO Q6 #28 capsule Forms: Return to Work Referrals: LUCHO MEEK MD [Primary Care Provider] - Follow up as needed
== END 2016-12-18 11:24 | disposition home or self-care (01) ==
LOC: ER 09:58
DX: K08.89 Other specified disorders of teeth and supporting structures (principal); R68.84 Jaw pain; Z87.891 Personal history of nicotine dependence
CPT/HCPCS: 99282; J3490

== ENCOUNTER → 2017-01-09 | Outpatient (CLI) | payer MEDICAID | LOC: RAD 12:02 | PROVIDERS: ATTEND Specialist | DX: R10.31 Right lower quadrant pain (principal); R19.05 Periumbilic swelling, mass or lump | CPT/HCPCS: 76856 ==

== ENCOUNTER 2017-03-25 20:49 | Emergency (ER) | payer MEDICAID ==
--- NOTE | 2017-03-25 22:21 | ER Document Report ---
HPI - HPI Patient complains to provider of: Nausea Pain Level: 1 Context: Patient is a 22 year old female that comes to the ED for intermittent nausea, feeling of lightheadedness, and an episode of vomiting a few days ago. She has not had a menstrual cycle since December, she states she believes she is . She denies current nausea, denies abdominal pain, denies currently feeling lightheaded, she states she only got lightheaded at work while working in the heat when the air conditioner stopped working. He denies any daily medications , past medical history of C-sections - REPRODUCTIVE Reproductive: REPORTS: : - DERM Skin Color: Normal Past Medical History - General Information source: Patient - Social History Smoking Status: Never Smoker Frequency of alcohol use: None Drug Abuse: None Lives with: Family Family History: Arthritis, DM, Hyperlipidemia, Hypertension, Malignancy, Thyroid Disfunction - Past Medical History Cardiac Medical History: Denies: Hx Hypertension, Hx Pulmonary Embolism, Hx Heart Murmur Pulmonary Medical History: Reports: Hx Asthma - prn inhaler, Hx Pneumonia - Pediatric Denies: Hx Sleep Apnea, Hx Tuberculosis Neurological Medical History: Denies: Hx Cerebrovascular Accident, Hx Seizures Endocrine Medical History: Denies: Hx Hyperthyroidism, Hx Hypothyroidism Renal/ Medical History: Reports: Hx Kidney Stones - in teen years. Denies: Hx Ovarian Cysts, Hx Peritoneal Dialysis, Hx Pelvic Inflammatory Disease Malignancy Medical History: Denies: Hx Breast Cancer, Hx Cervical Cancer, Hx Ovarian Cancer GI Medical History: Denies: Hx Gastroesophageal Reflux Disease, Hx Hiatal Hernia , Hx Ulcer Musculoskeltal Medical History: Denies Hx Fibromyalgia, Reports Hx Musculoskeletal Trauma Psychiatric Medical History: Reports: Hx Depression - hx of /not on meds during preg/to resume post Denies: Hx Bipolar Disorder, Hx Post Traumatic Stress Disorder, Hx Schizophrenia Traumatic Medical History: Denies: Hx Fractures Infectious Medical History: Denies: Hx HIV Past Surgical History: Reports: Hx Section - x2, Hx Cholecystectomy, Hx Oral Surgery - WISDOM, Hx Orthopedic Surgery - right wrist surgery - Immunizations Immunizations up to date: Yes Hx Diphtheria, Pertussis, Tetanus Vaccination: Yes Vertical Provider Document - CONSTITUTIONAL General Appearance: WD/WN, Obese - INFECTION CONTROL TRAVEL OUTSIDE OF THE [place] IN LAST 30 DAYS: No - HEENT HEENT: Atraumatic, Normocephalic - NECK Neck: Normal Inspection - RESPIRATORY Respiratory: Breath Sounds Normal, No Respiratory Distress - CARDIOVASCULAR Cardiovascular: Regular Rate, Regular Rhythm - GI/ABDOMEN Gastrointestinal: Abdomen Soft, Abdomen Non-Tender. negative: Abdomen Tender, Abdominal Guarding, Abdominal Rebound, Abnormal Bowel Sounds - REPRODUCTIVE Female Genitalia: Normal Inspection - BACK Back: Normal Inspection, Abnormal Inspection. negative: CVA Tenderness-Right, CVA Tenderness-Left - NEURO Level of Consciousness: Awake, Alert, Appropriate - DERM Integumentary: Warm, Dry, No Rash Course - Re-evaluation Re-evalutation: Smiling, well appearing, asymptomatic patient. Unremarkable physical exam. Urine contaminated, cultured due to being positive. Provided with proof of . Patient states she will follow up with her OBGYN. No additional concerns at this time. Discharge - Discharge Clinical Impression: Nausea Qualifiers: Weeks of gestation: unspecified Qualified Code(s): Z33.1 - state, incidental Condition: Stable Disposition: HOME, SELF-CARE Additional Instructions: Your test is positive. Your urine is non-specific, we have a culture growing in our lab. Follow up with OBGYN, begin vitamins. Return to the ED for concerning symptoms. Prescriptions: Pnv No.95/Ferrous Fum/Folic AC [ Multivitamin Tablet] 1 each PO DAILY # 30 tablet Referrals: [facility] [Provider Group] - Follow up in 1 week
[2017-03-25 22:50] LABS: APPEARANCE,URINE SLIGHTLY-CLOUDY; BILIRUBIN,URINE NEGATIVE (NEGATIVE); GLUCOSE, URINE NEGATIVE (NEGATIVE); KETONES,URINE NEGATIVE (NEGATIVE); LEUKOCYTE ESTERASE,URINE SMALL (NEGATIVE); NITRITE,URINE NEGATIVE (NEGATIVE); PROTEIN,URINE NEGATIVE (NEGATIVE); URINE SPECIFIC GRAVITY 1.025; UROBILINOGEN,URINE NEGATIVE mg/dL (<2.0)
[2017-03-25 23:58] VITALS: BP 115/72
== END 2017-03-25 23:56 | disposition home or self-care (01) ==
LOC: ER 20:49
DX: O21.9 Vomiting of pregnancy, unspecified (principal); O26.899 Other specified pregnancy related conditions, unspecified trimester; R42 Dizziness and giddiness; O99.519 Diseases of the respiratory system complicating pregnancy, unspecified trimester; J45.909 Unspecified asthma, uncomplicated; Z3A.00 Weeks of gestation of pregnancy not specified
CPT/HCPCS: 81001; 81025; 87086; 99284

== ENCOUNTER 2017-06-17 19:28 | Emergency (ER) | payer MEDICAID ==
[2017-06-17 20:29] VITALS: BP 136/83
== END 2017-06-18 00:38 | disposition left against medical advice (07) ==
LOC: ER 19:28
DX: Z53.21 Procedure and treatment not carried out due to patient leaving prior to being seen by health care provider (principal)

== ENCOUNTER 2017-09-30 20:29 | Emergency (ER) | payer MEDICAID ==
[2017-09-30] MEDS ORDERED: NORMAL SALINE 1000 ML 1,000 ML IV ONE (22:01)
[2017-09-30] MEDS ORDERED: ACETAMINOPHEN 325 MG TABLET PO ONE (22:01)
[2017-09-30] MEDS ORDERED: METOCLOPRAMIDE HCL INJ/PF 10 MG/2 ML SDV IV ONE (22:45)
[2017-09-30] MEDS ORDERED: DIPHENHYDRAMINE HCL 50 MG/ML VIAL IV ONE (22:45)
--- NOTE | 2017-09-30 23:41 | ER Document Report ---
HPI - HPI Patient complains to provider of: headache Onset: Other - 4 days Onset/Duration: Gradual Quality of pain: Throbbing Pain Level: 4 Context: 22 yo 30 week female with hx headaches, worse during pregnancies c/o gradual onset all posterior occiput headache that radiates to front, mostly on the left side. Similar headaches all her life. Tylenol dulls it. Some nausea. Active fetus, no abdominal pain or vaginal bleeding. No fever. Associated Symptoms: None Exacerbated by: Denies Relieved by: Other - tylenol dulls it Similar symptoms previously: Yes Recently seen / treated by doctor: No - ROS ROS below otherwise negative: Yes Systems Reviewed and Negative: Yes All other systems reviewed and negative - NEURO Neurology: REPORTS: Headache - 4 days / 30 wks - REPRODUCTIVE Reproductive: REPORTS: : Past Medical History - General Information source: Patient - Social History Smoking Status: Never Smoker Frequency of alcohol use: None Drug Abuse: None Lives with: Spouse/Significant other Family History: Arthritis, DM, Hyperlipidemia, Hypertension, Malignancy, Thyroid Disfunction Patient has suicidal ideation: No Patient has homicidal ideation: No Pulmonary Medical History: Reports: Hx Asthma - prn inhaler, Hx Pneumonia - Pediatric Neurological Medical History: Reports: Other - headaches Renal/ Medical History: Reports: Hx Kidney Stones - in teen years Musculoskeltal Medical History: Reports Hx Musculoskeletal Trauma Psychiatric Medical History: Reports: Hx Depression - hx of /not on meds during preg/to resume post Past Surgical History: Reports: Hx Section - x2, Hx Cholecystectomy, Hx Oral Surgery - WISDOM, Hx Orthopedic Surgery - right wrist surgery - Immunizations Immunizations up to date: Yes Hx Diphtheria, Pertussis, Tetanus Vaccination: Yes Vertical Provider Document - CONSTITUTIONAL Agree With Documented VS: Yes Exam Limitations: No Limitations General Appearance: No Apparent Distress - INFECTION CONTROL TRAVEL OUTSIDE OF THE [place] IN LAST 30 DAYS: No - HEENT HEENT: Normal ENT Exam - NECK Neck: Supple. negative: Lymphadenopathy-Left, Lymphadenopathy-Right - RESPIRATORY Respiratory: Breath Sounds Normal, No Respiratory Distress O2 Sat by Pulse Oximetry: 97 - CARDIOVASCULAR Cardiovascular: Regular Rate, Regular Rhythm - MUSCULOSKELETAL/EXTREMETIES Musculoskeletal/Extremeties: MAEW, FROM - NEURO Level of Consciousness: Awake, Alert, Appropriate Motor/Sensory: No Motor Deficit, No Sensory Deficit - DERM Integumentary: Warm, Dry Course - Re-evaluation Re-evalutation: 09/30/17 23:39 FHT 151 09/30/17 23:40 Headache down to 1/5 after the medication. Has been up to bathroom 09/30/17 23:58 headache 3/5 resting on right side 10/01/17 00:15 headache 2.5/5 , has obgyn appt tomorrow, feeling baby move at this time. - Vital Signs Vital signs: Temp Pulse Resp BP Pulse Ox 98.6 F 71 16 112/72 97 09/30/17 22:50 09/30/17 22:50 09/30/17 22:50 09/30/17 22:50 09/30/17 22:50 Discharge - Discharge Clinical Impression: 30 weeks gestation of Headache Qualifiers: Headache type: tension-type Headache chronicity pattern: acute headache Intractability: not intractable Qualified Code(s): G44.209 - Tension-type headache, unspecified, not intractable Condition: Good Disposition: HOME, SELF-CARE Instructions: Use of Diphenhydramine, Headache ([facility]), Reglan ([facility]) Additional Instructions: see obgyn in the morning as planned to er tonight any concerns Referrals: LUCHO MEEK MD [Primary Care Provider] - Follow up tomorrow
[2017-10-01 01:04] VITALS: BP 110/64
== END 2017-10-01 01:02 | disposition home or self-care (01) ==
LOC: ER 20:29
DX: O26.93 Pregnancy related conditions, unspecified, third trimester (principal); G44.209 Tension-type headache, unspecified, not intractable; Z3A.30 30 weeks gestation of pregnancy; Z90.49 Acquired absence of other specified parts of digestive tract
CPT/HCPCS: 99284; 96374; 96375; J3490; J1200; J2765; J7030

== ENCOUNTER 2017-10-07 18:35 | Outpatient (CLI) | payer MEDICAID ==
[2017-10-07 19:18] LABS: APPEARANCE,URINE SLIGHTLY-CLOUDY; BILIRUBIN,URINE NEGATIVE (NEGATIVE); COLOR,URINE YELLOW; GLUCOSE, URINE NEGATIVE (NEGATIVE); KETONES,URINE TRACE mg/dL (NEGATIVE); LEUKOCYTE ESTERASE,URINE NEGATIVE (NEGATIVE); NITRITE,URINE NEGATIVE (NEGATIVE); PROTEIN,URINE NEGATIVE (NEGATIVE); URINE SPECIFIC GRAVITY 1.023; UROBILINOGEN,URINE NEGATIVE mg/dL (<2.0)
[2017-10-07 19:36] LABS: URINE AMPHETAMINES SCREEN NEGATIVE; URINE BARBITURATES SCREEN NEGATIVE; URINE BENZODIAZEPINES SCREEN NEGATIVE; URINE COCAINE SCREEN NEGATIVE; URINE MARIJUANA (THC) SCREEN NEGATIVE; URINE METHADONE SCREEN NEGATIVE; URINE PHENCYCLIDINE SCREEN NEGATIVE
== END 2017-10-07 20:54 | disposition home or self-care (01) ==
LOC: LC 18:35
PROVIDERS: ATTEND Student in an Organized Health Care Education/Training Program
PROC: 4A1HXCZ Monitoring of Products of Conception, Cardiac Rate, External Approach (ICD-10-PCS; principal; 2017-10-07)
DX: O47.03 False labor before 37 completed weeks of gestation, third trimester (principal); Z3A.31 31 weeks gestation of pregnancy
CPT/HCPCS: 80307; 81001

== ENCOUNTER 2017-10-23 09:06 | Emergency (ER) | payer MEDICAID ==
[2017-10-23 09:13] VITALS: BP 130/83
--- NOTE | 2017-10-23 09:25 | ER Document Report ---
ED Medical Screen (RME) - General Chief Complaint: Flu Symptoms Stated Complaint: FLU SYMPTOMS Time Seen by Provider: 10/23/17 09:11 Mode of Arrival: Ambulatory Information source: Patient TRAVEL OUTSIDE OF THE [place] IN LAST 30 DAYS: No - HPI Patient complains to provider of: Cough runny nose sneezing Onset: Yesterday Onset/Duration: Gradual Notes: 10/23/17 09:24 Patient is and is due in 6 weeks. She states she was sent here from her OB to get a flu test.She states she has had cough congestion sneezing. No fevers. Positive nausea no vomiting no diarrhea. No abdominal pain or vaginal bleeding. - Related Data Allergies/Adverse Reactions: Penicillins Allergy (Severe, Verified 10/07/17 18:52) Anaphylaxis Sulfa (Sulfonamide Antibiotics) Allergy (Mild, Verified 10/07/17 18:52) Unknown reaction Past Medical History - Social History Chew tobacco use (# tins/day): No Frequency of alcohol use: None Drug Abuse: None - Past Medical History Cardiac Medical History: Denies: Hx Hypertension, Hx Pulmonary Embolism, Hx Heart Murmur Pulmonary Medical History: Reports: Hx Asthma - prn inhaler, Hx Pneumonia - Pediatric Denies: Hx Sleep Apnea, Hx Tuberculosis Neurological Medical History: Denies: Hx Cerebrovascular Accident, Hx Seizures Endocrine Medical History: Denies: Hx Hyperthyroidism, Hx Hypothyroidism Renal/ Medical History: Reports: Hx Kidney Stones - in teen years. Denies: Hx Ovarian Cysts, Hx Peritoneal Dialysis, Hx Pelvic Inflammatory Disease Malignancy Medical History: Denies: Hx Breast Cancer, Hx Cervical Cancer, Hx Ovarian Cancer GI Medical History: Denies: Hx Gastroesophageal Reflux Disease, Hx Hiatal Hernia , Hx Ulcer Musculoskeltal Medical History: Denies Hx Fibromyalgia, Reports Hx Musculoskeletal Trauma Psychiatric Medical History: Reports: Hx Depression - hx of /not on meds during preg/to resume post Denies: Hx Bipolar Disorder, Hx Post Traumatic Stress Disorder, Hx Schizophrenia Traumatic Medical History: Denies: Hx Fractures Infectious Medical History: Denies: Hx HIV Past Surgical History: Reports: Hx Section - x2, Hx Cholecystectomy, Hx Oral Surgery - WISDOM, Hx Orthopedic Surgery - right wrist surgery - Immunizations Immunizations up to date: Yes Hx Diphtheria, Pertussis, Tetanus Vaccination: Yes Physical Exam - Vital signs Vitals: Temp Pulse Resp BP Pulse Ox 98.4 F 107 H 16 130/83 H 96 10/23/17 09:11 10/23/17 09:11 10/23/17 09:11 10/23/17 09:11 10/23/17 09:11 Course - Vital Signs Vital signs: Temp Pulse Resp BP Pulse Ox 98.4 F 107 H 16 130/83 H 96 10/23/17 09:11 10/23/17 09:11 10/23/17 09:11 10/23/17 09:11 10/23/17 09:11
--- NOTE | 2017-10-23 09:36 | ER Document Report ---
ED Flu Like - General Chief Complaint: Flu Symptoms Stated Complaint: FLU SYMPTOMS Time Seen by Provider: 10/23/17 09:11 Mode of Arrival: Ambulatory Notes: This is a 22-year-old female patient to the emergency department with a chief complaint of flulike symptoms. Patient states that she was in her by her OB/ PARAPROFESSIONAL INTERPRETER for evaluation because she is 36 weeks . States that she has body aches and chills. States that she does not run fevers usually. She denies any abdominal pain at this time. Eating and drinking. Normal amount of urination. This is her fourth . TRAVEL OUTSIDE OF THE [place] IN LAST 30 DAYS: No - HPI Onset: Yesterday Timing/Duration: Intermittent Quality of pain: No pain Severity: Mild Pain Level: 0 - Related Data Allergies/Adverse Reactions: Penicillins Allergy (Severe, Verified 10/07/17 18:52) Anaphylaxis Sulfa (Sulfonamide Antibiotics) Allergy (Mild, Verified 10/07/17 18:52) Unknown reaction Past Medical History - General Information source: Patient - Social History Smoking Status: Former Smoker Chew tobacco use (# tins/day): No Frequency of alcohol use: None Drug Abuse: None Lives with: Spouse/Significant other Family History: Arthritis, DM, Hyperlipidemia, Hypertension, Malignancy, Thyroid Disfunction Patient has suicidal ideation: No Patient has homicidal ideation: No - Past Medical History Cardiac Medical History: Denies: Hx Hypertension, Hx Pulmonary Embolism, Hx Heart Murmur Pulmonary Medical History: Reports: Hx Asthma - prn inhaler, Hx Pneumonia - Pediatric Denies: Hx Sleep Apnea, Hx Tuberculosis Neurological Medical History: Denies: Hx Cerebrovascular Accident, Hx Seizures Endocrine Medical History: Denies: Hx Hyperthyroidism, Hx Hypothyroidism Renal/ Medical History: Reports: Hx Kidney Stones - in teen years. Denies: Hx Ovarian Cysts, Hx Peritoneal Dialysis, Hx Pelvic Inflammatory Disease Malignancy Medical History: Denies: Hx Breast Cancer, Hx Cervical Cancer, Hx Ovarian Cancer GI Medical History: Denies: Hx Gastroesophageal Reflux Disease, Hx Hiatal Hernia , Hx Ulcer Musculoskeltal Medical History: Denies Hx Fibromyalgia, Reports Hx Musculoskeletal Trauma Psychiatric Medical History: Reports: Hx Depression - hx of /not on meds during preg/to resume post Denies: Hx Bipolar Disorder, Hx Post Traumatic Stress Disorder, Hx Schizophrenia Traumatic Medical History: Denies: Hx Fractures Infectious Medical History: Denies: Hx HIV Past Surgical History: Reports: Hx Section - x2, Hx Cholecystectomy, Hx Oral Surgery - WISDOM, Hx Orthopedic Surgery - right wrist surgery - Immunizations Immunizations up to date: Yes Hx Diphtheria, Pertussis, Tetanus Vaccination: Yes Review of Systems - Review of Systems Constitutional: Chills. denies: Fever, Malaise, Weakness EENT: denies: Eye pain, Eye discharge, Blurred vision, Double vision, Nose congestion, Nose discharge, Difficulty swallowing Cardiovascular: denies: Chest pain, Palpitations, Heart racing, Dyspnea, Syncope , Dizziness, Lightheaded Respiratory: denies: Cough, Hurts to breathe, Short of breath, Wheezing Gastrointestinal: denies: Abdominal pain, Diarrhea, Nausea, Vomiting Genitourinary: denies: Burning, Dysuria, Discharge Female Genitourinary: . denies: Vaginal bleeding, Vaginal odor Musculoskeletal: denies: Back pain, Gout, Joint pain, Joint swelling, Muscle pain Skin: denies: Lesions, Lumps, Rash Hematologic/Lymphatic: denies: Anemia, Blood clots, Easy bleeding, Easy bruising Neurological/Psychological: denies: Confusion, Sensory change, Headaches Physical Exam - Vital signs Vitals: Temp Pulse Resp BP Pulse Ox 98.4 F 107 H 16 130/83 H 96 10/23/17 09:11 10/23/17 09:11 10/23/17 09:11 10/23/17 09:11 10/23/17 09:11 Interpretation: Tachycardic - General General appearance: Appears well, Alert - HEENT Head: Normocephalic, Atraumatic Eyes: Normal Pupils: PERRL - Respiratory Respiratory status: No respiratory distress Chest status: Nontender Breath sounds: Normal Chest palpation: Normal - Cardiovascular Rhythm: Regular Heart sounds: Normal auscultation Murmur: No - Abdominal Inspection: Normal Distension: Other - 6 week gravid abdomen Bowel sounds: Normal Tenderness: Nontender Organomegaly: No organomegaly - Back Back: Normal, Nontender - Extremities General upper extremity: Normal inspection, Nontender, Normal color, Normal ROM , Normal temperature General lower extremity: Normal inspection, Nontender, Normal color, Normal ROM , Normal temperature, Normal weight bearing. No: [place]'s sign - Neurological Neuro grossly intact: Yes Cognition: Normal Orientation: AAOx4 [place] Coma Scale Eye Opening: Spontaneous Tegan Coma Scale Verbal: Oriented [place] Coma Scale Motor: Obeys Commands Tegan Coma Scale Total: 15 Speech: Normal Motor strength normal: LUE, RUE, LLE, RLE Sensory: Normal - Psychological Associated symptoms: Normal affect, Normal mood - Skin Skin Temperature: Warm Skin Moisture: Dry Skin Color: Normal Course - Re-evaluation Re-evalutation: 10/23/17 10:46 This is a well-appearing 22-year-old female in no acute distress. Influenza negative. Do not feel compelled at this time to just start her on any other treatments. Patient is comfortable with this plan. Will follow up with her regular doctor. Of note, urinalysis was obtained and will follow up on the results. - Vital Signs Vital signs: Temp Pulse Resp BP Pulse Ox 98.4 F 107 H 16 130/83 H 96 10/23/17 09:11 10/23/17 09:11 10/23/17 09:11 10/23/17 09:11 10/23/17 09:11 10/23/17 10:46 Laboratory 10/23/17 09:28 Influenza A (Rapid) NEGATIVE Influenza B (Rapid) NEGATIVE Discharge - Discharge Clinical Impression: Viral syndrome Condition: Good Disposition: HOME, SELF-CARE Additional Instructions: Viral Syndrome The physician has diagnosed a viral infection. Viruses not only cause "colds," but can cause many different symptoms including generalized aching, fever, headache, cough, diarrhea, nausea, vomiting, and fatigue. The treatment, for the most part, is simply relief of symptoms. This means that antibiotics are usually not given. Rest, fluids, pain medications and, occasionally, medication for the specific symptoms that are most bothersome will be prescribed. Use good handwashing to avoid passing the virus to others. Shared toys should be cleaned with disinfectant. Clean the toilets, sinks, and counter surfaces in bathrooms. Launder clothing in hot water. Contact the physician if you develop any new or unusual symptoms such as severe headache, stiff neck, high fever, chest pain, productive cough, or shortness of breath. You should be rechecked if you don't see marked improvement within seven to 10 days. Referrals: LUCHO MEEK MD [Primary Care Provider] - Follow up as needed
[2017-10-23 10:25] LABS: A TYPE INFLUENZA AG NEGATIVE (NEGATIVE); B INFLUENZA AG NEGATIVE (NEGATIVE)
[2017-10-23 12:27] LABS: APPEARANCE,URINE CLOUDY; BILIRUBIN,URINE NEGATIVE (NEGATIVE); CALCIUM OXALATE CRYSTALS,URINE MODERATE /HPF; COLOR,URINE YELLOW; GLUCOSE, URINE NEGATIVE (NEGATIVE); KETONES,URINE NEGATIVE (NEGATIVE); LEUKOCYTE ESTERASE,URINE SMALL (NEGATIVE); NITRITE,URINE NEGATIVE (NEGATIVE); PROTEIN,URINE NEGATIVE (NEGATIVE); URINE SPECIFIC GRAVITY 1.026
== END 2017-10-23 11:05 | disposition home or self-care (01) ==
LOC: ER 09:06
DX: O98.513 Other viral diseases complicating pregnancy, third trimester (principal); B34.9 Viral infection, unspecified; M79.1 Myalgia; Z3A.36 36 weeks gestation of pregnancy; Z88.0 Allergy status to penicillin; Z88.2 Allergy status to sulfonamides; Z87.891 Personal history of nicotine dependence; Z87.442 Personal history of urinary calculi
CPT/HCPCS: 81001; 82570; 87804; 99283

== ENCOUNTER 2017-11-28 09:19 | Outpatient (CLI) | payer MEDICAID ==
[2017-11-28 09:48] LABS: APPEARANCE,URINE CLOUDY; BILIRUBIN,URINE NEGATIVE (NEGATIVE); COLOR,URINE YELLOW; GLUCOSE, URINE NEGATIVE (NEGATIVE); KETONES,URINE NEGATIVE (NEGATIVE); LEUKOCYTE ESTERASE,URINE MODERATE (NEGATIVE); NITRITE,URINE NEGATIVE (NEGATIVE); PROTEIN,URINE NEGATIVE (NEGATIVE); UROBILINOGEN,URINE NEGATIVE mg/dL (<2.0)
[2017-11-28 10:06] LABS: URINE AMPHETAMINES SCREEN NEGATIVE; URINE BARBITURATES SCREEN NEGATIVE; URINE BENZODIAZEPINES SCREEN NEGATIVE; URINE COCAINE SCREEN NEGATIVE; URINE MARIJUANA (THC) SCREEN NEGATIVE; URINE METHADONE SCREEN NEGATIVE; URINE PHENCYCLIDINE SCREEN NEGATIVE
[2017-11-28 10:11] LABS: UR PRO/CREAT RATIO RESULT 0.3 mg/mg (0.0-0.2); URINE CREATININE 46.2 mg/dL (16-327); URINE PROTEIN 14.6 mg/dL (<12)
--- NOTE | 2017-11-28 10:15 | Non Stress Test Report ---
Non Stress Test Datetime Report Generated by CPN: 11/28/2017 10:15 DEMOGRAPHIC EGA NST: 38.5 INDICATION Indication for Study: Ordered by Provider MONITORING Monitor Explained: Monitor Explained; Test Explained; Patient Verbalized Understanding Time on Monitor: 11/28/2017 09:40 Time off Monitor: 11/28/2017 10:00 NST Duration: 20 NST INTERVENTIONS NST Interventions: PO Hydration; Reposition Patient Physician Notified NST: H. Declan, CNM. Provider reviewed strip BABY A: [id number] BABY A Movement : Present Contraction Frequency : None FHR Baseline : 135 Accelerations : 15X15 Decelerations : None Variability : Moderate 6-25bpm NST Review: Meets Criteria for Reactive NST NST Review and Verified By : BIBI Delcid Results: Reactive NST REPORT Report Trigger: Send Report
[2017-11-28 10:18] LABS: ABSOLUTE EOSINOPHILS # (AUTO) 0.1 10^3/uL (0.0-0.6); ABSOLUTE LYMPHOCYTES (AUTO) 1.9 10^3/uL (0.5-4.7); ABSOLUTE MONOCYTES (AUTO) 0.6 10^3/uL (0.1-1.4); ABSOLUTE NEUT (AUTO) 10.9 10^3/uL (1.7-8.2); BASOPHILS % (AUTO) 0.1 % (0-2); EOSINOPHILS % (AUTO) 0.7 % (0-6); HEMATOCRIT 34.6 % (36.0-47.0); HEMOGLOBIN 11.4 g/dL (12.0-15.5); LYMPHOCYTES % (AUTO) 13.9 % (13-45); MEAN CORPUSCULAR HEMOGLOBIN 27.7 pg (27.0-33.4); MEAN CORPUSCULAR HGB CONC 32.8 g/dL (32.0-36.0); MEAN CORPUSCULAR VOLUME 84 fl (80-97); MONOCYTES % (AUTO) 4.6 % (3-13); PLATELET COUNT 270 10^3/uL (150-450); RED BLOOD COUNT 4.11 10^6/uL (3.72-5.28); RED CELL DISTRIBUTION WIDTH 14.1 % (11.5-14.0); SEGMENTED NEUTROPHILS % (AUTO) 80.7 % (42-78); TOTAL CELLS COUNTED % (AUTO) 100 %; WHITE BLOOD COUNT 13.6 10^3/uL (4.0-10.5)
[2017-11-28 10:49] LABS: ALANINE AMINOTRANSFERASE 29 U/L (9-52); ALBUMIN 3.1 g/dL (3.5-5.0); ALKALINE PHOSPHATASE 156 U/L (38-126); ANION GAP 10 (5-19); ASPARTATE AMINO TRANSFERASE 17 U/L (14-36); BILIRUBIN,DIRECT 0.1 mg/dL (0.0-0.4); BILIRUBIN,TOTAL 0.1 mg/dL (0.2-1.3); BLOOD UREA NITROGEN 8 mg/dL (7-20); CALCIUM 9.3 mg/dL (8.4-10.2); CARBON DIOXIDE 22 mmol/L (22-30); CHLORIDE 106 mmol/L (98-107); GLUCOSE 81 mg/dL (75-110); LDH 436 U/L (313-618); POTASSIUM 4.3 mmol/L (3.6-5.0); SODIUM 137.9 mmol/L (137-145); TOTAL PROTEIN 5.8 g/dL (6.3-8.2)
== END 2017-11-28 10:06 | disposition home or self-care (01) ==
LOC: LC 09:19
PROVIDERS: ATTEND Obstetrics & Gynecology
PROC: 4A1HXCZ Monitoring of Products of Conception, Cardiac Rate, External Approach (ICD-10-PCS; principal; 2017-11-28)
DX: Z36.89 Encounter for other specified antenatal screening (principal); Z3A.38 38 weeks gestation of pregnancy
CPT/HCPCS: 36415; 59025; 80053; 80307; 81001; 82570; 83615; 84156; 84550; 85025

== ENCOUNTER 2018-03-01 10:22 | Emergency (ER) | payer MEDICAID ==
[2018-03-01 10:32] VITALS: BP 137/81
--- NOTE | 2018-03-01 11:00 | ER Document Report ---
HPI - HPI Patient complains to provider of: Right wrist pain Onset: Last week Pain Level: 3 Context: 23-year-old handed female complaining of right wrist pain and is concerned that the ganglion cyst that was removed 8 years ago has recurred. She has dorsal and volar wrist pain. There is been no injury. She wants an x-ray. Associated Symptoms: None Exacerbated by: Movement Relieved by: Denies - ROS ROS below otherwise negative: Yes Systems Reviewed and Negative: Yes All other systems reviewed and negative - REPRODUCTIVE Reproductive: REPORTS: : Past Medical History - General Information source: Patient - Social History Smoking Status: Unknown if Ever Smoked Frequency of alcohol use: None Drug Abuse: None Lives with: Family Family History: Arthritis, DM, Hyperlipidemia, Hypertension, Malignancy, Thyroid Disfunction Pulmonary Medical History: Reports: Hx Asthma - prn inhaler, Hx Pneumonia - Pediatric Renal/ Medical History: Reports: Hx Kidney Stones - in teen years Musculoskeltal Medical History: Reports Hx Musculoskeletal Trauma Psychiatric Medical History: Reports: Hx Depression - hx of /not on meds during preg/to resume post Past Surgical History: Reports: Hx Section - x2, Hx Cholecystectomy, Hx Oral Surgery - WISDOM, Hx Orthopedic Surgery - removal of ganglion cyst on the dorsal right wrist - Immunizations Immunizations up to date: Yes Hx Diphtheria, Pertussis, Tetanus Vaccination: Yes Vertical Provider Document - CONSTITUTIONAL Agree With Documented VS: Yes Exam Limitations: No Limitations General Appearance: No Apparent Distress - INFECTION CONTROL TRAVEL OUTSIDE OF THE [place] IN LAST 30 DAYS: No - HEENT HEENT: Normocephalic - NECK Neck: Supple - MUSCULOSKELETAL/EXTREMETIES Musculoskeletal/Extremeties: MAEW, FROM, Tender - Over the volar right wrist tendons between the ulna and radius, No Edema. negative: Eccymosis Notes: Minimal ganglion cyst which is actually nontender dorsal right wrist - NEURO Level of Consciousness: Awake Motor/Sensory: No Motor Deficit, No Sensory Deficit - DERM Integumentary: Warm, Dry Course - Re-evaluation Re-evalutation: 03/01/18 11:32 Prelim x-ray is negative I will have the patient call me back for the final results. We will place a Velcro cockup splint - Vital Signs Vital signs: Temp Pulse Resp BP Pulse Ox 98.3 F 86 20 137/81 H 97 03/01/18 10:31 03/01/18 10:31 03/01/18 10:31 03/01/18 10:31 03/01/18 10:31 Procedures - Immobilization Right Wrist Time completed: 11:32 Pre-Proc Neuro Vasc Exam: Normal Immobilizer type: Cock-up Performed by: PCT Post-Proc Neuro Vasc Exam: Normal Alignment checked and good: Yes Discharge - Discharge Clinical Impression: Right wrist tendinitis, Dorsal right wrist ganglion cyst Condition: Good Disposition: HOME, SELF-CARE Instructions: Ganglion Cyst (OM), Ibuprofen (General) (OM), Temporary Splint (OM), Tendonitis (OM) Additional Instructions: Splint for comfort Motrin Tylenol Schedule appointment with Dr. Madrid who is a hand specialist Prescriptions: Ibuprofen [Motrin 800 mg Tablet] 800 mg PO Q8HP PRN #30 tablet PRN Reason: Referrals: SASHA MADRID DO [ACTIVE STAFF] - Follow up as needed
--- NOTE | 2018-03-01 11:58 | RADIOLOGY REPORT (SQ) ---
EXAM DESCRIPTION: WRIST RIGHT 3 VIEWS COMPLETED DATE/TIME: 03/01/2018 11:30 am REASON FOR STUDY: pain COMPARISON: 2009. NUMBER OF VIEWS: Three views right wrist. LIMITATIONS: None. FINDINGS: There is no acute or significant bone, joint or soft tissue abnormality. OTHER: No other significant finding. IMPRESSION: NORMAL STUDY. TECHNICAL DOCUMENTATION: JOB ID: [id number] Reading location - IP/workstation name: [email or web address]
== END 2018-03-01 11:36 | disposition home or self-care (01) ==
LOC: ER 10:22
DX: O99.89 Other specified diseases and conditions complicating pregnancy, childbirth and the puerperium (principal); M77.9 Enthesopathy, unspecified; M25.531 Pain in right wrist; O99.519 Diseases of the respiratory system complicating pregnancy, unspecified trimester; J45.909 Unspecified asthma, uncomplicated; Z3A.00 Weeks of gestation of pregnancy not specified
CPT/HCPCS: 99283; 73110; L3908

== ENCOUNTER 2018-10-24 20:11 | Emergency (ER) | payer MEDICAID ==
--- NOTE | 2018-10-24 22:02 | ER Document Report ---
ED Extremity Problem, Upper - General Chief Complaint: Cyst Stated Complaint: RIGHT WRIST PAIN Time Seen by Provider: 10/24/18 21:39 Primary Care Provider: ALAN MARADIAGA MD [Primary Care Provider] - Follow up as needed SASHA MADRID DO [ACTIVE STAFF] - Follow up as needed Mode of Arrival: Ambulatory Information source: Patient Notes: 23-year-old female presented to ED for complaint of possible return of ganglion cyst to her right wrist. She states she had a ganglion cyst removed in about 2008. She states she is been having pain in her right wrist since about June or July but did not follow-up with the primary doctor. She states is not gone away. She states it hurts all the time. States she has been referred to Dr. Madrid last year and got a steroid shot in this wrist but has not been back to see him since then. Patient states she has not fallen has not injured her arm she is just concerned because she started a new job which one to make sure he was going to be able to do her job when she got to work. TRAVEL OUTSIDE OF THE [place] IN LAST 30 DAYS: No - HPI Patient complains to provider of: Pain, Right, Wrist Onset: Other - June 2018 this time has a history since 2008 Recent injury: No Quality of pain: Achy, Burning Severity of pain: Moderate Pain Level: 4 Associated symptoms: None Exacerbated by: Movement, Exertion Relieved by: Nothing Similar symptoms previously: Yes Recently seen / treated by doctor: No - Related Data Allergies/Adverse Reactions: Penicillins Allergy (Severe, Verified 03/01/18 10:23) Anaphylaxis Sulfa (Sulfonamide Antibiotics) Allergy (Mild, Verified 03/01/18 10:23) Unknown reaction Past Medical History - General Information source: Patient - Social History Smoking Status: Former Smoker Cigarette use (# per day): No Chew tobacco use (# tins/day): No Smoking Education Provided: No Frequency of alcohol use: None Drug Abuse: None 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 Lives with: Family Family History: Arthritis, DM, Hyperlipidemia, Hypertension, Malignancy, Thyroid Disfunction Patient has suicidal ideation: No Patient has homicidal ideation: No - Past Medical History Cardiac Medical History: Reports: None Pulmonary Medical History: Reports: Hx Asthma - prn inhaler, Hx Bronchitis, Hx Pneumonia - Pediatric EENT Medical History: Reports: None Neurological Medical History: Reports: None Endocrine Medical History: Reports: None Renal/ Medical History: Reports: Hx Kidney Stones - in teen years Malignancy Medical History: Reports: None GI Medical History: Reports: None Musculoskeletal Medical History: Reports Hx Musculoskeletal Trauma - Fractured knee, Reports Other - Ganglion cyst Skin Medical History: Reports None Psychiatric Medical History: Reports: Hx Anxiety - Panic attacks, Hx Attention Deficit Hyperactivity Disorder, Hx Depression - hx of /not on meds during preg/to resume post , Other - Binge eating disorder Traumatic Medical History: Reports: Hx Fractures - Knee Infectious Medical History: Reports: None Past Surgical History: Reports: Hx Section - x4, Hx Cholecystectomy, Hx Oral Surgery - WISDOM, Hx Orthopedic Surgery - removal of ganglion cyst on the dorsal right wrist - Immunizations Immunizations up to date: Yes Hx Diphtheria, Pertussis, Tetanus Vaccination: Yes Review of Systems - Review of Systems Constitutional: No symptoms reported EENT: No symptoms reported Cardiovascular: No symptoms reported Respiratory: No symptoms reported Gastrointestinal: No symptoms reported Genitourinary: No symptoms reported Female Genitourinary: No symptoms reported Musculoskeletal: Other - Tenderness to her right wrist increased pain with movement or with lifting. Patient states she has a history of a ganglion cyst. No ganglion cyst about her noted Skin: No symptoms reported Hematologic/Lymphatic: No symptoms reported Neurological/Psychological: No symptoms reported -: Yes All other systems reviewed and negative Physical Exam - Vital signs Vitals: Temp Pulse Resp BP Pulse Ox 98.9 F 92 18 135/81 H 97 10/24/18 20:32 10/24/18 20:32 10/24/18 20:32 10/24/18 20:32 10/24/18 20:32 Interpretation: Normal - General General appearance: Appears well, Alert - HEENT Head: Normocephalic, Atraumatic Eyes: Normal Pupils: PERRL - Respiratory Respiratory status: No respiratory distress Chest status: Nontender Breath sounds: Normal. No: Decreased air movement, Nonproductive cough, Productive cough, Rales, Rhonchi, Stridor Chest palpation: Normal - Cardiovascular Rhythm: Regular Heart sounds: Normal auscultation Murmur: No - Abdominal Inspection: Normal Distension: No distension Bowel sounds: Normal Tenderness: Nontender Organomegaly: No organomegaly - Back Back: Normal, Nontender - Extremities General upper extremity: Normal inspection, Normal color, Normal ROM, Normal temperature General lower extremity: Normal inspection, Nontender, Normal color, Normal ROM, Normal temperature, Normal weight bearing. No: [place]'s sign Wrist: Tender. No: Abrasion, Axial load of thumb pain, Deformity, Dislocation, Ecchymosis, Instability, Laceration, Limited ROM, Navicular tenderness Hand: Tender, No evidence of human bite, No evidence of FB. No: Abrasion, Defor mity, Dislocation, Ecchymosis, Instability, Laceration, Nail injury, Swelling, Tendon deficit - Neurological Neuro grossly intact: Yes Cognition: Normal Orientation: AAOx4 [place] Coma Scale Eye Opening: Spontaneous [place] Coma Scale Verbal: Oriented [place] Coma Scale Motor: Obeys Commands Tegan Coma Scale Total: 15 Speech: Normal Motor strength normal: LUE, RUE, LLE, RLE Sensory: Normal - Psychological Associated symptoms: Normal affect, Normal mood - Skin Skin Temperature: Warm Skin Moisture: Dry Skin Color: Normal Course - Re-evaluation Re-evalutation: 10/25/18 01:40 Discussed risk and best fits of an x-ray with patient. There are no obvious ganglion cyst at this times. There is no history of a fall or injury. Patient has had this pain off and on since June. She has had history of ganglion cyst in the past. She states the pain just continues and so she was concerned that she needed the x-ray for this pain. She states she saw Dr. Madrid last year for the similar pain and was given steroid injections in the wrist. Patient was treated with cockup splint to the right wrist and instructed to follow-up with orthopedics. Patient verbalized understanding and agreement with treatment plan. - Vital Signs Vital signs: Temp Pulse Resp BP Pulse Ox 98.1 F 91 16 131/81 H 99 10/24/18 22:11 10/24/18 22:11 10/24/18 22:11 10/24/18 22:11 10/24/18 22:11 Discharge - Discharge Clinical Impression: Chronic pain of right wrist Condition: Stable Disposition: HOME, SELF-CARE Additional Instructions: You state you have had pain in your right wrist since 2008 off and on. She states since June has been constant and is not gone away. You have not been back to the doctor since this time. You state about a year ago he went to Dr. Madrid and had a steroid injection which did not do a whole lot of good. You asked her if a x-ray would show a ganglion cyst. Usually a ganglion cyst does not show up on an x-ray. I have offered to do an x-ray if you requested and you stated you do not want x-ray as you know you have not fallen or broken your wrist. Ice & Elevation Apply ice packs frequently against the painful area. Many different schedules are recommended, such as "20 minutes on, 20 minutes off" or "one hour ice, two hours rest." If you need to work, you may need to go longer between ice treatments. You should plan to have the area ice packed AT LEAST one-fourth of the time. The ice should be applied over the wrap, tape, or splint, or over a layer of cloth -- not directly against the skin. Some ice bags have a built-in cloth and can be put directly on the skin. Your injured part should be elevated as much as possible over the next 48 hours. Try to keep the injury above the level of the heart. Avoid use of the injured area. Elevation and rest will decrease the swelling. Acetaminophen Acetaminophen may be taken for pain relief or fever control. It's much safer than aspirin, offering a wider range of "safe" dosages. It is safe during . Some brand names are Tylenol, Panadol, Datril, Anacin 3, Tempra, and Liquiprin. Acetaminophen can be repeated every four hours. The following are maximum recommended dosages: WEIGHT Dose Drops Elixir Chewable(80mg) (LBS.) drprs=droppers tsp=teaspoon 6 40 mg .4 ml (1/2) 6-11 80 mg .8 ml (full) 1/2 tsp 1 tab 12-16 120 mg 1 1/2 drprs 3/4 tsp 1 1/2 tabs 17-23 160 mg 2 drprs 1 tsp 2 tabs 24-30 240 mg 3 drprs 1 1/2 tsp 3 tabs 30-35 320 mg 2 tsp 4 tabs 36-41 360 mg 2 1/4 tsp 4 1/2 tabs 42-47 400 mg 2 1/2 tsp 5 tabs 48-53 480 mg 3 tsp 6 tabs 54-59 520 mg 3 1/4 tsp 6 1/2 tabs 60-64 560 mg 3 1/2 tsp 7 tabs 65-70 600 mg 3 3/4 tsp 7 1/2 tabs 71-76 640 mg 4 tsp 8 tabs 77-82 720 mg 4 1/2 tsp 9 tabs 83-88 800 mg 5 tsp 10 tabs >89 pounds or adults 650 mg to 900 mg Acetaminophen can be repeated every four hours. Maximum daily dose not to exceed 4000 mg. These maximum recommended dosages are slightly higher than the dosages written on the product container, but these dosages are very safe and well below the toxic dosage for acetaminophen. I have given you the information concerning carpal tunnel syndrome as some of the symptoms you are describing do correlate with carpal tunnel syndrome. I have not stated that you have carpal tunnel but I am just given you the information to follow-up with orthopedics. Carpal Tunnel Syndrome Your examination suggests carpal tunnel syndrome. This syndrome is due to pressure on a nerve in the wrist. The pressure may be caused by an old injury, hard work using the wrist, work involving repeated motions of the hand, wrist positions that keep pressure on the joint, or arthritis in the wrist. Typical symptoms are tingling, numbness, and pain in the palm, thumb, index and middle fingers, and one side of the ring finger. Often a splint, ice packs, and antiinflammatory medication make the symptoms go away. If the physician feels that your problem is chronic, you will be referred to a specialist for further care. If symptoms do not go away, carpal tunnel syndrome may require surgery. You should call the doctor if pain increases, if you develop difficulty using the thumb or fingers, or if major swelling occurs. Splint Precautions A splint has been placed. This will protect the area while healing begins. Your problem does NOT normally require a cast. It MUST, however, be held still! Keep the splint on ALL THE TIME until instructed to remove it by the doctor. As you begin to use the area, be careful. You shouldn't do anything which causes discomfort -- you may disturb the injury even with the splint in place. After the initial period of rest and elevation, if splint does not prevent pain when you move, come back. You may require placement of a different splint, or a cast. If there is unexpected severe pain, or numbness, discoloration, or swelling beyond the splint, you should return at once. If you feel that the splint has broken or become loose, come back. You have stated you have been using your albuterol inhaler more than your normally do and you wanted to know whether you should be tested for increase in symptoms of asthma. I have recommended that you follow-up with your primary doctor and discuss with them pulmonary testing to see whether you are using your inhaler from panic disorder or from your asthma. The symptoms you are describing could be either. You are not wheezing at this time your lungs are clear to auscultation at this time and your sats are 97%. FOLLOW-UP CARE: If you have been referred to a physician for follow-up care, call the physicians office for an appointment as you were instructed or within the next two days. If you experience worsening or a significant change in your symptoms, notify the physician immediately or return to the Emergency Department at any time for re-evaluation. Referrals: ALAN MARADIAGA MD [Primary Care Provider] - Follow up as needed SASAH MADRID DO [ACTIVE STAFF] - Follow up as needed
[2018-10-24 22:12] VITALS: BP 131/81
== END 2018-10-24 22:12 | disposition home or self-care (01) ==
LOC: ER 20:11
DX: G89.29 Other chronic pain (principal); M25.531 Pain in right wrist; J45.909 Unspecified asthma, uncomplicated; Z88.2 Allergy status to sulfonamides; Z88.0 Allergy status to penicillin; Z87.892 Personal history of anaphylaxis
CPT/HCPCS: 99283; L3908

== ENCOUNTER 2018-10-30 22:34 | Emergency (ER) | payer MEDICAID | END 2018-10-31 01:10 | disposition left against medical advice (07) | LOC: ER 22:34 | DX: Z53.21 Procedure and treatment not carried out due to patient leaving prior to being seen by health care provider (principal) ==

== ENCOUNTER 2018-10-31 13:25 | Emergency (ER) | payer MEDICAID ==
[2018-10-31 13:45] VITALS: BP 126/75
--- NOTE | 2018-10-31 13:49 | ER Document Report ---
Addendum entered and electronically signed by REMA ROD PA-C 10/31/18 13:53: Discharge - Discharge Clinical Impression: Acute URI Condition: Stable Disposition: HOME, SELF-CARE Instructions: Upper Respiratory Illness ([facility]) Additional Instructions: Maintain adequate fluid intake Take meds as directed tylenol/ibuprofen as needed over the counter cold medication as needed for symptoms Humidified air may help Wash your hands regularly Wear a mask when coughing F/u: with your PCM in 3-5 days for a recheck Return to the ED with any fever, worsening pain, chest pain, palpitations, syncope, worsening CARRILLO, neck pain/stiffness, shortness of breath, wheezing, drooling, trouble swallowing/breathing, abdominal pain, n/v/d, rash, or worsening/concerning symptoms otherwise. Prescriptions: Ondansetron [Zofran Odt 4 mg Tablet] 1 - 2 tab PO Q4H PRN #15 tab.rapdis PRN Reason: For Nausea/Vomiting Forms: Elevated Blood Pressure, Return to Work Referrals: ALAN MARADIAGA MD [Primary Care Provider] - Follow up as needed Original Note: HPI - HPI Time Seen by Provider: 10/31/18 13:42 Pain Level: 4 Notes: Patient is a 23-year-old female who presents to the ED complaining of nasal co ngestion/discharge, dry nonproductive cough 3 days. She was vomiting yesterday x2, none today, and has rt ear pain. Patient states that she is still eating and drinking without difficulties, but does have a decreased p.o. intake. She is still urinating normally having normal bowel movements. Patient has been using some [id number] meds for symptoms. She denies any significant past medical history including cardiopulmonary history and immunocompromised conditions. Patient denies any smoking or IV drug use. Patient requesting work note. Denies any current headache, neck pain, sore throat, chest pain, palpitations, syncope, shortness of breath, wheeze, dyspnea, abdominal pain, nausea/vomiting/diarrhea, urinary retention, dysuria, hematuria, or rash. - ROS Systems Reviewed and Negative: Yes All other systems reviewed and negative - REPRODUCTIVE LMP: 10/23/18 Reproductive: DENIES: : Past Medical History - Social History Smoking Status: Never Smoker Family History: Arthritis, DM, Hyperlipidemia, Hypertension, Malignancy, Thyroid Disfunction Patient has suicidal ideation: No Patient has homicidal ideation: No - Past Medical History Cardiac Medical History: Denies: Hx Hypertension, Hx Pulmonary Embolism, Hx Heart Murmur Pulmonary Medical History: Reports: Hx Asthma - prn inhaler, Hx Bronchitis, Hx Pneumonia - Pediatric Denies: Hx Sleep Apnea, Hx Tuberculosis Neurological Medical History: Denies: Hx Cerebrovascular Accident, Hx Seizures Endocrine Medical History: Denies: Hx Hyperthyroidism, Hx Hypothyroidism Renal/ Medical History: Reports: Hx Kidney Stones - in teen years. Denies: Hx Ovarian Cysts, Hx Peritoneal Dialysis, Hx Pelvic Inflammatory Disease Malignancy Medical History: Denies: Hx Breast Cancer, Hx Cervical Cancer, Hx Ovarian Cancer GI Medical History: Denies: Hx Gastroesophageal Reflux Disease, Hx Hiatal Hernia, Hx Ulcer Musculoskeletal Medical History: Denies Hx Fibromyalgia, Reports Hx Musculoskeletal Trauma - Fractured knee Psychiatric Medical History: Reports: Hx Anxiety - Panic attacks, Hx Attention Deficit Hyperactivity Disorder, Hx Depression - hx of /not on meds during preg/to resume post Denies: Hx Bipolar Disorder, Hx Post Traumatic Stress Disorder, Hx Schizophrenia Traumatic Medical History: Reports: Hx Fractures - Knee Infectious Medical History: Denies: Hx HIV Past Surgical History: Reports: Hx Section - x4, Hx Cholecystectomy, Hx Oral Surgery - WISDOM, Hx Orthopedic Surgery - removal of ganglion cyst on the dorsal right wrist - Immunizations Immunizations up to date: Yes Hx Diphtheria, Pertussis, Tetanus Vaccination: Yes Vertical Provider Document - CONSTITUTIONAL Agree With Documented VS: Yes Notes: PHYSICAL EXAMINATION: GENERAL: Well-appearing, well-nourished and in no acute distress. A&Ox4. Answers questions appropriately. Moves comfortably w/o notable distress HEAD: Atraumatic, normocephalic. EYES: Pupils equal round and reactive to light, extraocular movements intact, sclera anicteric, conjunctiva are normal. ENT: EAC clear b/l. TM's intact b/l without erythema, fluid, or perforation. Nares patent and with clear discharge. oropharynx no erythema without exudates. No tonsilar hypertrophy without erythema or exudate. No palatine shift. Uvula midline. No tongue protrusion. No drooling, hoarseness, or airway compromise. Moist mucous membranes. No sinus tenderness. NECK: Normal range of motion, supple without lymphadenopathy. No rigidity/meningismus. LUNGS: Breath sounds clear to auscultation bilaterally and equal. No wheezes rales or rhonchi. No retractions HEART: Regular rate and rhythm without murmurs, rubs, gallops. ABDOMEN: Soft, nontender, nondistended abdomen. No guarding, no rebound. Normal bowel sounds present. No CVA tenderness bilaterally. NEUROLOGICAL: Normal speech, normal gait. PSYCH: Normal mood, normal affect. SKIN: Warm, Dry, normal turgor, no rashes or lesions noted. - INFECTION CONTROL TRAVEL OUTSIDE OF THE [place] IN LAST 30 DAYS: No Course - Re-evaluation Re-evalutation: 10/31/18 13:48 Patient is an afebrile, well-hydrated, 23-year-old female who presents to the ED with acute URI, suspect viral. Vitals are acceptable. PE is otherwise unremarkable. No labs or imaging warranted at this time based on H&P. Patient has no significant cardiopulmonary or immunocompromised medical conditions. Patient's lungs are clear to auscultation bilaterally without tachycardia, hypoxia, or tachypnea. Patient is tolerating p.o. without any difficulties. Low suspicion for any meningitis, sepsis, peritonsillar/pharyngeal abscess, respiratory compromise, severe dehydration, or other emergent systemic condition at this time. Patient is aware this condition can change from initial presentation and she needs to monitor symptoms closely. Conservative measures otherwise for symptoms. Recheck with your PCM in 3-5 days. Return to the ED with any worsening/concerning symptoms otherwise as reviewed in discharge. Patient is in agreement. - Vital Signs Vital signs: Temp Pulse Resp BP Pulse Ox 98.1 F 89 16 126/75 H 100 10/31/18 13:42 10/31/18 13:42 10/31/18 13:42 10/31/18 13:42 10/31/18 13:42 Discharge - Discharge Clinical Impression: Acute URI Condition: Stable Disposition: HOME, SELF-CARE Instructions: Upper Respiratory Illness ([facility]) Additional Instructions: Maintain adequate fluid intake Take meds as directed tylenol/ibuprofen as needed over the counter cold medication as needed for symptoms Humidified air may help Wash your hands regularly Wear a mask when coughing F/u: with your PCM in 3-5 days for a recheck Return to the ED with any fever, worsening pain, chest pain, palpitations, syncope, worsening CARRILLO, neck pain/stiffness, shortness of breath, wheezing, drooling, trouble swallowing/breathing, abdominal pain, n/v/d, rash, or worsening/concerning symptoms otherwise. Forms: Return to Work, Elevated Blood Pressure Referrals: ALAN MARADIAGA MD [Primary Care Provider] - Follow up as needed
== END 2018-10-31 13:52 | disposition home or self-care (01) ==
LOC: ER 13:25
DX: J06.9 Acute upper respiratory infection, unspecified (principal); R09.81 Nasal congestion; H92.01 Otalgia, right ear; Z87.442 Personal history of urinary calculi
CPT/HCPCS: 99283

== ENCOUNTER 2018-11-11 18:26 | Emergency (ER) | payer MEDICAID ==
[2018-11-11] MEDS ORDERED: HYDROCODONE/ACETAMINOPHEN 5-325 MG (6 TAB/ER DISP) PO PRN (22:20)
[2018-11-11] MEDS ORDERED: CLINDAMYCIN HCL 150 MG CAPSULE PO ONE (22:20)
--- NOTE | 2018-11-11 22:22 | ER Document Report ---
HPI - HPI Patient complains to provider of: Toothache Time Seen by Provider: 11/11/18 21:56 Onset: This morning Onset/Duration: Worse Quality of pain: Throbbing Pain Level: 4 Context: Patient complains of dental pain from a broken tooth that worsened today. Patient states she does have an appointment tomorrow with the dentist but had to leave work because of her pain symptoms. Patient denies any facial swelling or fever. Associated Symptoms: denies: Fever, Nausea Exacerbated by: Denies Relieved by: Denies Similar symptoms previously: Yes Recently seen / treated by doctor: No - ROS ROS below otherwise negative: Yes Systems Reviewed and Negative: Yes All other systems reviewed and negative - CONSTITUTIONAL Constitutional: DENIES: Fever, Chills - EENT Notes: Dental pain - RESPIRATORY Respiratory: DENIES: Coughing - GASTROINTESTINAL Gastrointestinal: DENIES: Nausea, Patient vomiting - REPRODUCTIVE Reproductive: DENIES: : - MUSCULOSKELETAL Musculoskeletal: DENIES: Neck Pain - DERM Skin Color: Normal Skin Problems: None Past Medical History - General Information source: Patient - Social History Smoking Status: Never Smoker Frequency of alcohol use: None Drug Abuse: None Occupation: [employer] Lives with: Family Family History: Arthritis, DM, Hyperlipidemia, Hypertension, Malignancy, Thyroid Disfunction Patient has suicidal ideation: No Patient has homicidal ideation: No - Past Medical History Cardiac Medical History: Denies: Hx Hypertension, Hx Pulmonary Embolism, Hx Heart Murmur Pulmonary Medical History: Reports: Hx Asthma - prn inhaler, Hx Bronchitis, Hx Pneumonia - Pediatric Denies: Hx Sleep Apnea, Hx Tuberculosis Renal/ Medical History: Reports: Hx Kidney Stones - in teen years Musculoskeletal Medical History: Reports Hx Musculoskeletal Trauma - Fractured knee Psychiatric Medical History: Reports: Hx Anxiety - Panic attacks, Hx Attention Deficit Hyperactivity Disorder, Hx Depression - hx of /not on meds during pr eg/to resume post Traumatic Medical History: Reports: Hx Fractures - Knee Past Surgical History: Reports: Hx Section - x4, Hx Cholecystectomy, Hx Oral Surgery - WISDOM, Hx Orthopedic Surgery - removal of ganglion cyst on the dorsal right wrist - Immunizations Immunizations up to date: Yes Hx Diphtheria, Pertussis, Tetanus Vaccination: Yes Vertical Provider Document - CONSTITUTIONAL Agree With Documented VS: Yes Exam Limitations: No Limitations General Appearance: WD/WN, No Apparent Distress - INFECTION CONTROL TRAVEL OUTSIDE OF THE [place] IN LAST 30 DAYS: No - HEENT HEENT: Atraumatic, Normocephalic Mouth Diagram: 1 - Dental decay, tenderness, no abscess, no trismus - NECK Neck: Normal Inspection, Supple - RESPIRATORY Respiratory: Breath Sounds Normal, No Respiratory Distress - CARDIOVASCULAR Cardiovascular: Regular Rate, Regular Rhythm - MUSCULOSKELETAL/EXTREMETIES Musculoskeletal/Extremeties: MAEW - NEURO Level of Consciousness: Awake, Alert, Appropriate Motor/Sensory: No Motor Deficit - DERM Integumentary: Warm, Dry, No Rash Course - Vital Signs Vital signs: Temp Pulse Resp BP Pulse Ox 98.4 F 80 16 122/83 98 11/11/18 19:23 11/11/18 19:23 11/11/18 19:23 11/11/18 19:23 11/11/18 19:23 Discharge - Discharge Clinical Impression: Toothache Condition: Stable Disposition: HOME, SELF-CARE Instructions: Clindamycin (COUNT INCLUDES THE [facility]), Toothache (COUNT INCLUDES THE [facility]) Additional Instructions: Return immediately for any new or worsening symptoms Followup with your dental care provider tomorrow as planned Prescriptions: Clindamycin HCl [Cleocin 300 mg Capsule] 300 mg PO TID #21 capsule Forms: Return to Work Referrals: IMMANUEL CEDILLO FNP-C [Primary Care Provider] - Follow up as needed
[2018-11-11 22:54] VITALS: BP 132/80
== END 2018-11-11 22:53 | disposition home or self-care (01) ==
LOC: ER 18:26
DX: K02.9 Dental caries, unspecified (principal); K08.89 Other specified disorders of teeth and supporting structures; J45.909 Unspecified asthma, uncomplicated
CPT/HCPCS: 99282; J3490

== ENCOUNTER 2019-04-08 12:25 | Emergency (ER) | payer MEDICAID ==
[2019-04-08 12:32] VITALS: BP 127/95
--- NOTE | 2019-04-08 12:49 | ER Document Report ---
HPI - HPI Time Seen by Provider: 04/08/19 12:37 Pain Level: 4 Notes: Patient is a morbidly obese 24-year-old female presented to the emergency department chief complaint of low abdominal pain due to a rash. Patient had a done 1 year ago, she states that due to her obesity her abdomen is always rubbing on the incision. She reports the other day she went to the beach and may have gotten sand in the area. She reports now she has significant pain and redness to the area. She denies any fevers. - CONSTITUTIONAL Constitutional: DENIES: Fever, Chills - REPRODUCTIVE Reproductive: DENIES: : Past Medical History - General Information source: Patient - Social History Smoking Status: Never Smoker Frequency of alcohol use: None Drug Abuse: None Family History: Arthritis, DM, Hyperlipidemia, Hypertension, Malignancy, Thyroid Disfunction Patient has suicidal ideation: No Patient has homicidal ideation: No - Past Medical History Cardiac Medical History: Denies: Hx Hypertension, Hx Pulmonary Embolism, Hx Heart Murmur Pulmonary Medical History: Reports: Hx Asthma - prn inhaler, Hx Bronchitis, Hx Pneumonia - Pediatric Denies: Hx Sleep Apnea, Hx Tuberculosis Neurological Medical History: Denies: Hx Cerebrovascular Accident, Hx Seizures Endocrine Medical History: Denies: Hx Hyperthyroidism, Hx Hypothyroidism Renal/ Medical History: Reports: Hx Kidney Stones - in teen years. Denies: Hx Ovarian Cysts, Hx Peritoneal Dialysis, Hx Pelvic Inflammatory Disease Malignancy Medical History: Denies: Hx Breast Cancer, Hx Cervical Cancer, Hx Ovarian Cancer GI Medical History: Denies: Hx Gastroesophageal Reflux Disease, Hx Hiatal Hernia, Hx Ulcer Musculoskeletal Medical History: Denies Hx Fibromyalgia, Reports Hx Musculoskeletal Trauma - Fractured knee Psychiatric Medical History: Reports: Hx Anxiety - Panic attacks, Hx Attention Deficit Hyperactivity Disorder, Hx Depression - hx of /not on meds during preg/to resume post Denies: Hx Bipolar Disorder, Hx Post Traumatic Stress Disorder, Hx Schizophrenia Traumatic Medical History: Reports: Hx Fractures - Knee Infectious Medical History: Denies: Hx HIV Past Surgical History: Reports: Hx Section - x4, Hx Cholecystectomy, Hx Oral Surgery - WISDOM, Hx Orthopedic Surgery - removal of ganglion cyst on the dorsal right wrist - Immunizations Immunizations up to date: Yes Hx Diphtheria, Pertussis, Tetanus Vaccination: Yes Vertical Provider Document - CONSTITUTIONAL Notes: PHYSICAL EXAMINATION: GENERAL: Well-appearing, well-nourished and in no acute distress. HEAD: Atraumatic, normocephalic. EYES: Pupils equal round extraocular movements intact, conjunctiva are normal. ENT: Nares patent NECK: Normal range of motion LUNGS: No respiratory distress Musculoskeletal: Normal range of motion NEUROLOGICAL: Normal speech, normal gait. PSYCH: Normal mood, normal affect. SKIN: Slight erythema noted to incision, skin excoriated around the incision from the heaviness of the pannus. - INFECTION CONTROL TRAVEL OUTSIDE OF THE [place] IN LAST 30 DAYS: No Course - Re-evaluation Re-evalutation: Patient be placed on antibiotics for possible evolving cellulitis, she will also be given a prescription for [place] as she is significant pain when moving her pannus. Encourage patient to follow-up with her surgeon. Of note it has been well over a year since her . The incision appears to be healed well but due to patient's size there is a constant irritation at the site. ED return precautions were discussed patient verbalized understanding and agreement with same. The patient's emergency department workup and current diagnosis were explained to the patient and or family. Follow-up instructions were provided. Medications if prescribed were discussed. Instructions for when to return to the emergency department including specific worrisome symptoms were discussed with the patient and/or family. - Vital Signs Vital signs: Temp Pulse Resp BP Pulse Ox 98.2 F 83 18 127/95 H 94 04/08/19 12:31 04/08/19 12:31 04/08/19 12:31 04/08/19 12:31 04/08/19 12:31 Discharge - Discharge Clinical Impression: Skin irritation Cellulitis Qualifiers: Site of cellulitis: trunk Site of cellulitis of trunk: abdominal wall Qualified Code(s): L03.311 - Cellulitis of abdominal wall Condition: Stable Disposition: HOME, SELF-CARE Additional Instructions: Please take antibiotics as prescribed. Use the narcotic pain medication for severe pain only. No work for today and tomorrow. Watch the area closely and if antibiotics do not help please follow-up with your surgeon. Return to the emergency department for any new or worsening symptoms to include worsening pain, increased redness, drainage from the area, fever or any other symptom that is concerning to you. Prescriptions: Clindamycin HCl 300 mg PO TID #21 capsule Hydrocodone Bit/Acetaminophen [Hydrocodon-Acetaminophen 5-325] 1 each PO Q4H #10 tablet Forms: Return to Work Referrals: IMMANUEL CEDILLO, DIETARY SERVICES DIRECTOR-C [COMMUNITY BASED STAFF] - Follow up as needed
== END 2019-04-08 12:52 | disposition home or self-care (01) ==
LOC: ER 12:25
DX: L03.311 Cellulitis of abdominal wall (principal); R21 Rash and other nonspecific skin eruption; R10.30 Lower abdominal pain, unspecified; J45.909 Unspecified asthma, uncomplicated
CPT/HCPCS: 99282

== ENCOUNTER 2019-07-08 20:05 | Emergency (ER) | payer MEDICAID ==
--- NOTE | 2019-07-08 20:52 | ER Document Report ---
ED Medical Screen (RME) - General Stated Complaint: HEADACHE,DIZZINESS,VAGINAL BLEEDING,ABDOMINAL PAIN Time Seen by Provider: 07/08/19 20:48 Primary Care Provider: TWAN GRIJALVA FNP-C [Primary Care Provider] - Follow up as needed Mode of Arrival: Ambulatory Information source: Patient Notes: 24-year-old female presents to ED for vaginal bleeding starting Friday which she had her IUD removed. She states it went away and then today it came back heavier. She states she is been to 5-6 pads today and the bleeding started a little before lunch. Patient is alert oriented respirations regular nonlabored speaking in full sentences. She states she had appeared from the to the of this month she had the IUD taken later on the and she bled at that time it did stop and then today she started bleeding again. She states she has had some nausea and vomiting and lightheaded with dizziness today. I have greeted and performed a rapid initial assessment of this patient. A comprehensive ED assessment and evaluation of the patient, analysis of test results and completion of medical decision making process will be conducted by an additional ED providers. TRAVEL OUTSIDE OF THE [place] IN LAST 30 DAYS: No - Related Data Allergies/Adverse Reactions: Penicillins Allergy (Severe, Verified 04/08/19 12:28) Anaphylaxis Sulfa (Sulfonamide Antibiotics) Allergy (Mild, Verified 04/08/19 12:28) Unknown reaction Past Medical History - Past Medical History Cardiac Medical History: Denies: Hx Hypertension, Hx Pulmonary Embolism, Hx Heart Murmur Pulmonary Medical History: Reports: Hx Asthma - prn inhaler, Hx Bronchitis, Hx Pneumonia - Pediatric Denies: Hx Sleep Apnea, Hx Tuberculosis Neurological Medical History: Denies: Hx Cerebrovascular Accident, Hx Seizures, Hx Parkinson's Disease Endocrine Medical History: Denies: Hx Hyperthyroidism, Hx Hypothyroidism Renal/ Medical History: Reports: Hx Kidney Stones - in teen years. Denies: Hx Ovarian Cysts, Hx Peritoneal Dialysis, Hx Pelvic Inflammatory Disease Malignancy Medical History: Denies: Hx Breast Cancer, Hx Cervical Cancer, Hx Ovarian Cancer GI Medical History: Denies: Hx Gastroesophageal Reflux Disease, Hx Hiatal Hernia, Hx Ulcer Musculoskeltal Medical History: Denies Hx Fibromyalgia, Reports Hx Mus culoskeletal Trauma - Fractured knee Psychiatric Medical History: Reports: Hx Anxiety - Panic attacks, Hx Attention Deficit Hyperactivity Disorder, Hx Depression - hx of /not on meds during preg/to resume post Denies: Hx Bipolar Disorder, Hx Post Traumatic Stress Disorder, Hx Schizophrenia Traumatic Medical History: Reports: Hx Fractures - Knee Infectious Medical History: Denies: Hx HIV Past Surgical History: Reports: Hx Section - x4, Hx Cholecystectomy, Hx Oral Surgery - WISDOM, Hx Orthopedic Surgery - removal of ganglion cyst on the dorsal right wrist - Immunizations Immunizations up to date: Yes Hx Diphtheria, Pertussis, Tetanus Vaccination: Yes Physical Exam - Vital signs Vitals: Temp Pulse Resp BP Pulse Ox 98.4 F 92 16 141/96 H 99 07/08/19 20:32 07/08/19 20:32 07/08/19 20:32 07/08/19 20:32 07/08/19 20:32 Course - Vital Signs Vital signs: Temp Pulse Resp BP Pulse Ox 98.4 F 92 16 141/96 H 99 07/08/19 20:32 07/08/19 20:32 07/08/19 20:32 07/08/19 20:32 07/08/19 20:32 Doctor's Discharge - Discharge Referrals: TWAN GRIJALVA FNP-C [Primary Care Provider] - Follow up as needed
[2019-07-08 21:40] LABS: HEMATOCRIT 38.7 % (36.0-47.0); HEMOGLOBIN 12.6 g/dL (12.0-15.5); MEAN CORPUSCULAR HEMOGLOBIN 26.1 pg (27.0-33.4); MEAN CORPUSCULAR HGB CONC 32.5 g/dL (32.0-36.0); MEAN CORPUSCULAR VOLUME 81 fl (80-97); RED BLOOD COUNT 4.81 10^6/uL (3.72-5.28); RED CELL DISTRIBUTION WIDTH 14.5 % (11.5-14.0); WHITE BLOOD COUNT 14.8 10^3/uL (4.0-10.5)
[2019-07-08 21:42] LABS: APPEARANCE,URINE SLIGHTLY-CLOUDY; BILIRUBIN,URINE NEGATIVE (NEGATIVE); COLOR,URINE YELLOW; GLUCOSE, URINE NEGATIVE (NEGATIVE); KETONES,URINE NEGATIVE (NEGATIVE); PROTEIN,URINE NEGATIVE (NEGATIVE); URINE SPECIFIC GRAVITY 1.015; UROBILINOGEN,URINE NEGATIVE mg/dL (<2.0)
[2019-07-08 21:44] LABS: ALBUMIN 4.2 g/dL (3.5-5.0); ALKALINE PHOSPHATASE 87 U/L (38-126); ANION GAP 10 (5-19); ASPARTATE AMINO TRANSFERASE 19 U/L (14-36); BILIRUBIN,DIRECT 0.2 mg/dL (0.0-0.4); BILIRUBIN,TOTAL 0.3 mg/dL (0.2-1.3); BLOOD UREA NITROGEN 11 mg/dL (7-20); CALCIUM 9.5 mg/dL (8.4-10.2); CARBON DIOXIDE 28 mmol/L (22-30); CHLORIDE 101 mmol/L (98-107); GLUCOSE 80 mg/dL (75-110); POTASSIUM 4.2 mmol/L (3.6-5.0); TOTAL PROTEIN 7.6 g/dL (6.3-8.2)
[2019-07-08 21:56] LABS: PLATELET COUNT 268 10^3/uL (150-450)
[2019-07-08 21:58] LABS: ABSOLUTE LYMPHOCYTES# (MANUAL) 4.6 10^3/uL (0.5-4.7); ABSOLUTE MONOCYTES # (MANUAL) 0.4 10^3/uL (0.1-1.4); ANISOCYTOSIS SLIGHT; BASOPHILS % (MANUAL) 0 % (0-2); EOSINOPHILS % (MANUAL) 0 % (0-6); LYMPHOCYTES % (MANUAL) 30 % (13-45); MONOCYTES % (MANUAL) 3 % (3-13); PLATELET CLUMPS PRESENT; PLATELET COMMENT ADEQUATE; SEGMENTED NEUTROPHILS % (MAN) 66 % (42-78); TOTAL CELLS COUNTED 100
--- NOTE | 2019-07-09 00:10 | RADIOLOGY REPORT (SQ) ---
CLINICAL HISTORY: vaginal bleeding COMPARISON: None. TECHNIQUE: US PELVIS TRANSVAGINAL on 07/08/2019 8:53 PM CDT FINDINGS: The uterus measures 8.5 cm. Endometrial stripe measures 5 mm. There is blood/fluid in the cervix, which itself measures 2.1 cm. The ovaries are not visualized. IMPRESSION: Small amount of fluid/blood in the cervix.
[2019-07-09] MEDS ORDERED: ACETAMINOPHEN 325 MG TABLET PO ONE (02:07)
--- NOTE | 2019-07-09 02:09 | ER Document Report ---
ED General - General Chief Complaint: Vaginal Bleeding Stated Complaint: HEADACHE,DIZZINESS,VAGINAL BLEEDING,ABDOMINAL PAIN Time Seen by Provider: 07/08/19 20:48 Primary Care Provider: TWAN GRIJALVA FNP-C [Primary Care Provider] - Follow up as needed Mode of Arrival: Ambulatory Notes: Patient is a 24-year-old female who presents the emergency department with a chief complaint of vaginal bleeding. She states that she has gone through 5-6 pads within a couple of hours. Patient had her IUD removed 3 days ago. Patient was also started on tranexamic acid to help with her bleeding. She had her first dose yesterday. Patient has some mild cramping. TRAVEL OUTSIDE OF THE [place] IN LAST 30 DAYS: No - Related Data Allergies/Adverse Reactions: Penicillins Allergy (Severe, Verified 04/08/19 12:28) Anaphylaxis Sulfa (Sulfonamide Antibiotics) Allergy (Mild, Verified 04/08/19 12:28) Unknown reaction Home Medications: vyvanze 70mg Past Medical History - General Information source: Patient - Social History Smoking Status: Never Smoker Chew tobacco use (# tins/day): No Frequency of alcohol use: None Drug Abuse: None Family History: Arthritis, DM, Hyperlipidemia, Hypertension, Malignancy, Thyroid Disfunction Patient has suicidal ideation: No Patient has homicidal ideation: No - Past Medical History Cardiac Medical History: Denies: Hx Hypertension, Hx Pulmonary Embolism, Hx Heart Murmur Pulmonary Medical History: Reports: Hx Asthma - prn inhaler, Hx Bronchitis, Hx Pneumonia - Pediatric Denies: Hx Sleep Apnea, Hx Tuberculosis Neurological Medical History: Denies: Hx Cerebrovascular Accident, Hx Seizures, Hx Parkinson's Disease Endocrine Medical History: Denies: Hx Hyperthyroidism, Hx Hypothyroidism Renal/ Medical History: Reports: Hx Kidney Stones - in teen years. Denies: Hx Ovarian Cysts, Hx Peritoneal Dialysis, Hx Pelvic Inflammatory Disease Malignancy Medical History: Denies: Hx Breast Cancer, Hx Cervical Cancer, Hx Ovarian Cancer GI Medical History: Denies: Hx Gastroesophageal Reflux Disease, Hx Hiatal Hernia, Hx Ulcer Musculoskeletal Medical History: Denies Hx Fibromyalgia, Reports Hx Musculoskel etal Trauma - Fractured knee Psychiatric Medical History: Reports: Hx Anxiety - Panic attacks, Hx Attention Deficit Hyperactivity Disorder, Hx Depression - hx of /not on meds during preg/to resume post Denies: Hx Bipolar Disorder, Hx Post Traumatic Stress Disorder, Hx Schizophrenia Traumatic Medical History: Reports: Hx Fractures - Knee Infectious Medical History: Denies: Hx HIV Past Surgical History: Reports: Hx Section - x4, Hx Cholecystectomy, Hx Oral Surgery - WISDOM, Hx Orthopedic Surgery - removal of ganglion cyst on the dorsal right wrist - Immunizations Immunizations up to date: Yes Hx Diphtheria, Pertussis, Tetanus Vaccination: Yes Review of Systems - Review of Systems Notes: REVIEW OF SYSTEMS: CONSTITUTIONAL : Denies recent illness. Denies recent unintentional weight loss. Denies fever, chills, or sweats. EENT: Denies eye, ear, throat, or mouth pain, discharge, or symptoms. Denies nasal or sinus congestion. CARDIOVASCULAR: Denies chest pain. RESPIRATORY: Denies shortness of breath, cough, congestion, difficulty kaila thing, or wheezing. GASTROINTESTINAL: Denies nausea, vomiting, and diarrhea. Denies abdominal pain. Denies constipation. Last BM: GENITOURINARY: Denies difficulty urinating, burning, blood in urine, urgency or frequency. FEMALE GENITOURINARY: Denies abnormal or irregular periods. Denies abnormal bleeding. LMP: MUSCULOSKELETAL: Denies neck and back pain. Denies joint pain or swelling. SKIN: Denies rash, itchiness, or lesions HEMATOLOGIC : Denies easy bruising or bleeding. LYMPHATIC: Denies swollen, painful, enlarged glands. NEUROLOGICAL: Denies no numbness or tingling denies weakness. Denies headache. Denies altered mental status. Denies alteration in speech. PSYCHIATRIC: Denies stress, anxiety, alteration in sleep patterns, or depression. All other systems reviewed and negative. Physical Exam - Vital signs Vitals: Temp Pulse Resp BP Pulse Ox 98.4 F 92 16 141/96 H 99 07/08/19 20:32 07/08/19 20:32 07/08/19 20:32 07/08/19 20:32 07/08/19 20:32 - Notes Notes: PHYSICAL EXAMINATION: GENERAL: Appears well, healthy, well-nourished, no acute distress. HEAD: Normocephalic, atraumatic. EYES: PERRL, conjunctiva normal, all extraocular movements intact, sclera nonicteric ENT: Moist mucous membranes. NECK: Supple, no noticeable swelling, redness, rash. Normal range of motion. LUNGS: Equal breath sounds bilaterally and clear to auscultation. No wheezes rales or rhonchi. CARDIOVASCULAR: S1-S2, regular rate, regular rhythm. Radial pulses 2+, normal. ABDOMEN: Normoactive bowel sounds. Soft, nontender, no guarding, no rebound tenderness, and no masses palpated. EXTREMITIES: Normal strength and range of motion, no pitting or edema. No cyanosis. NEUROLOGICAL: Moves all extremities upon command. Strength 5/5 in all extremities. PSYCH: Normal mood, normal affect. SKIN: Warm, dry. No rash, lesions, ulcerations noted. Normal skin turgor. HELP DESK REP: Old blood noted in vaginal canal. No excessive bleeding noted. Course - Re-evaluation Re-evalutation: 07/09/19 02:08 EARLINE Jordan was at bedside for pelvic exam. There is only old blood noted in the vaginal canal. CBC, chemistries, and urinalysis are normal. hCG is negative. There is blood in her urinalysis, consistent with her vaginal bleeding. I have advised the patient to continue to take her TXA and follow-up with [facility] in regards to this visit. Follow-up precautions were given. Verbal discharge instructions were given to the patient. They verbalized understanding. They are stable for discharge. - Vital Signs Vital signs: Temp Pulse Resp BP Pulse Ox 98.4 F 92 16 141/96 H 99 07/08/19 20:32 07/08/19 20:32 07/08/19 20:32 07/08/19 20:32 07/08/19 20:32 - Laboratory Result Diagrams: 07/08/19 20:58 07/08/19 20:58 Laboratory results interpreted by me: 07/08/19 07/08/19 20:58 20:58 WBC 14.8 H MCH 26.1 L RDW 14.5 H Abs Neuts (Manual) 9.8 H Urine Blood LARGE H Discharge - Discharge Clinical Impression: Vaginal bleeding Condition: Stable Disposition: HOME, SELF-CARE Additional Instructions: You were seen today in the emergency department for vaginal bleeding. Your ultrasound was normal. Your labs are also normal. Please continue to take your transischemic acid prescribed to you by the HAND HARDENER. Please follow-up with [facility] in regards to this visit. Your bleeding slowed down here in the emergency department. If you have worsening bleeding soak more than 1-2 pads an hour, please return to the emergency department. Forms: Return to Work Referrals: [facility] [Provider Group] - Follow up tomorrow
[2019-07-09 02:55] VITALS: BP 113/63
== END 2019-07-09 02:54 | disposition home or self-care (01) ==
LOC: ER 20:05
DX: N93.8 Other specified abnormal uterine and vaginal bleeding (principal); R51 Headache; R42 Dizziness and giddiness; Z88.0 Allergy status to penicillin; Z88.2 Allergy status to sulfonamides; Z90.49 Acquired absence of other specified parts of digestive tract
CPT/HCPCS: 36415; 84703; 85025; 80053; 81001; 76830; J3490; 99284

== ENCOUNTER 2019-08-07 17:18 | Emergency (ER) | payer SELFPAY ==
--- NOTE | 2019-08-07 17:49 | ER Document Report ---
HPI - HPI Time Seen by Provider: 08/07/19 17:35 Pain Level: 2 Context: 24-year-old female with past medical history of asthma presents to the emergency department for cough and congestion for the past 2 to 3 days. Patient states that she has been "screaming" at my kids as of late but that mostly resolved and then she started developing an acute sore throat with cough and congestion. Patient states that she had a stinging sensation and pain with swallowing, a productive cough with green mucus, mild shortness of breath, no fevers or chills, no ear pain, no neck stiffness, no nausea or vomiting. Patient states the only reason she came in is because she is going to undergo a uterine ablation on Friday of this week and she wanted to ensure that there is no concerning findings that would prohibit her from getting the procedure done - REPRODUCTIVE Reproductive: DENIES: : Past Medical History - Social History Smoking Status: Former Smoker Chew tobacco use (# tins/day): No Frequency of alcohol use: None Drug Abuse: None Family History: Arthritis, DM, Hyperlipidemia, Hypertension, Malignancy, Thyroid Disfunction Patient has suicidal ideation: No Patient has homicidal ideation: No - Past Medical History Cardiac Medical History: Denies: Hx Coronary Artery Disease, Hx Heart Attack, Hx Hypertension, Hx Pulmonary Embolism, Hx Heart Murmur Pulmonary Medical History: Reports: Hx Asthma - prn inhaler, Hx Bronchitis, Hx Pneumonia - Pediatric Denies: Hx Sleep Apnea, Hx Tuberculosis Neurological Medical History: Denies: Hx Cerebrovascular Accident, Hx Seizures, Hx Parkinson's Disease Endocrine Medical History: Denies: Hx Hyperthyroidism, Hx Hypothyroidism Renal/ Medical History: Reports: Hx Kidney Stones - in teen years. Denies: Hx Ovarian Cysts, Hx Peritoneal Dialysis, Hx Pelvic Inflammatory Disease Malignancy Medical History: Denies: Hx Breast Cancer, Hx Cervical Cancer, Hx Ovarian Cancer GI Medical History: Denies: Hx Gastroesophageal Reflux Disease, Hx Hiatal Hernia, Hx Ulcer Musculoskeletal Medical History: Denies Hx Arthritis, Denies Hx Fibromyalgia, Reports Hx Musculoskeletal Trauma - Fractured knee Psychiatric Medical History: Reports: Hx Anxiety - Panic attacks, Hx Attention Deficit Hyperactivity Disorder, Hx Depression - hx of /not on meds during preg/to resume post Denies: Hx Bipolar Disorder, Hx Post Traumatic Stress Disorder, Hx Schizophrenia Traumatic Medical History: Reports: Hx Fractures - Knee Infectious Medical History: Denies: Hx HIV Past Surgical History: Reports: Hx Section - x4, Hx Cholecystectomy, Hx Oral Surgery - WISDOM, Hx Orthopedic Surgery - removal of ganglion cyst on the dorsal right wrist - Immunizations Immunizations up to date: Yes Hx Diphtheria, Pertussis, Tetanus Vaccination: No Vertical Provider Document - CONSTITUTIONAL Notes: PHYSICAL EXAMINATION: Reviewed vital signs and charting by RN GENERAL: Alert, interacts well. No acute distress. HEAD: Normocephalic, atraumatic. EYES: Pupils equal and round. Extraocular movements intact. ENT: Oral mucosa moist, tongue midline. 1+ left tonsillar hypertrophy with no erythema, no anterior cervical lymphadenopathy NECK: Full range of motion. Trachea midline. LUNGS: Clear to auscultation bilaterally, no wheezes, rales, or rhonchi. No respiratory distress. HEART: Regular rate and rhythm. No murmur ABDOMEN: soft, non-tender. No distention. Bowel sounds present EXTREMITIES: Moves all 4 extremities spontaneously. No edema, No cyanosis. PSYCH: Normal affect, normal mood. SKIN: Warm, dry, normal turgor. No rashes or lesions noted. - INFECTION CONTROL TRAVEL OUTSIDE OF THE [place] IN LAST 30 DAYS: No Course - Re-evaluation Re-evalutation: 08/07/19 17:46 Presentation of several days of sore throat in an otherwise well-appearing patient. Rapid strep is negative. History and exam are not consistent with a r etropharyngeal abscess or peritonsillar abscess. Airway is patent. No difficulty handling oral secretions. Vitals within normal limits. Patient was treated with a dose of dexamethasone and advised on symptomatic care. Suspect likely viral pharyngitis. At this time will discharge with return precautions and follow-up recommendations. Verbal discharge instructions given a the bedside and opportunity for questions given. Medication warnings reviewed. Patient is in agreement with this plan and has verbalized understanding of return precautions and the need for primary care follow-up in the next 24-72 hours. Discharge - Discharge Clinical Impression: Cough, Acute viral pharyngitis Condition: Good Disposition: HOME, SELF-CARE Additional Instructions: Your strep test is negative. Your symptoms are likely due to an viral infection and will resolve in the next 1-2 weeks. You have also been given a dose of steroids to help with your throat discomfort. Please continue to take ibuprofen 600 mg every 6 hours or Tylenol 1000 mg every 6 hours as needed for throat discomfort. You can also gargle with salt water. Continue to drink plenty of fluids. Follow-up with your primary care doctor in the next several days. Return if you become unable to swallow, have difficulty breathing, pass out, have persistent vomiting that prevents you from being able to tolerate fluids, or have any other symptoms that are concerning to you. Referrals: TWAN GRIJALVA FNP-C [Primary Care Provider] - Follow up as needed
[2019-08-07] MEDS ORDERED: ALBUTEROL SULFATE HFA (90 MCG/PUFF) 8 GM MDI (1 MDI/ER DISP) IH ONE (19:19)
[2019-08-07 19:27] VITALS: BP 113/70
== END 2019-08-07 19:41 | disposition home or self-care (01) ==
LOC: ER 17:18
DX: J02.9 Acute pharyngitis, unspecified (principal); R05 Cough; R68.89 Other general symptoms and signs; Z90.49 Acquired absence of other specified parts of digestive tract; Z87.442 Personal history of urinary calculi
CPT/HCPCS: 87070; 87880; J3490; 99283

== ENCOUNTER 2019-08-11 11:11 | Day surgery (SDC) | payer MEDICAID ==
[2019-08-09 10:48] LABS: HEMATOCRIT 39.5 % (36.0-47.0); HEMOGLOBIN 12.9 g/dL (12.0-15.5); MEAN CORPUSCULAR HEMOGLOBIN 26.7 pg (27.0-33.4); MEAN CORPUSCULAR HGB CONC 32.7 g/dL (32.0-36.0); MEAN CORPUSCULAR VOLUME 82 fl (80-97); PLATELET COUNT 314 10^3/uL (150-450); RED BLOOD COUNT 4.82 10^6/uL (3.72-5.28); RED CELL DISTRIBUTION WIDTH 14.8 % (11.5-14.0); WHITE BLOOD COUNT 13.5 10^3/uL (4.0-10.5)
[2019-08-09 10:56] LABS: APPEARANCE,URINE CLEAR; BILIRUBIN,URINE NEGATIVE (NEGATIVE); COLOR,URINE YELLOW; GLUCOSE, URINE NEGATIVE (NEGATIVE); KETONES,URINE NEGATIVE (NEGATIVE); LEUKOCYTE ESTERASE,URINE NEGATIVE (NEGATIVE); NITRITE,URINE NEGATIVE (NEGATIVE); PROTEIN,URINE NEGATIVE (NEGATIVE); URINE SPECIFIC GRAVITY 1.016; UROBILINOGEN,URINE NEGATIVE mg/dL (<2.0)
[~2019-08-11 11:11] MED LIST: GLYCOPYRROLATE 1 MG/5 ML VIAL ONE; LACTATED RINGERS 1000 ML IV PRN; LIDOCAINE 0.5% INJ-PF (5 MG/ML) 50 ML SDV SUBCUT PRN; ONDANSETRON HCL INJ/PF 4 MG/2 ML SDV ONE
[2019-08-11] MEDS ORDERED: MIDAZOLAM 2 MG/2 ML INJ ONE ×2 (12:53→14:24)
[2019-08-11] MEDS ORDERED: KETAMINE HCL INJ 500 MG/10 ML VIAL ONE (14:23)
[2019-08-11] MEDS ORDERED: HYDROMORPHONE HCL INJ/PF 2 MG/ML AMPULE ONE (14:23)
[2019-08-11] MEDS ORDERED: PROPOFOL INJ 200 MG/20 ML VIAL IV ONE (14:24)
[2019-08-11] MEDS ORDERED: FENTANYL CITRATE INJ/PF 100 MCG/2 ML AMPUL ONE (14:24)
[2019-08-11] MEDS ORDERED: MEPERIDINE HCL/PF INJ 25 MG/1 ML DISP.SYRIN IV PRN (15:09)
[2019-08-11] MEDS ORDERED: FENTANYL CITRATE INJ/PF 100 MCG/2 ML AMPUL IV PRN ×3 (15:09)
[2019-08-11] MEDS ORDERED: DIPHENHYDRAMINE HCL 50 MG/ML VIAL IV PRN (15:09)
[2019-08-11] MEDS ORDERED: PROMETHAZINE HCL INJ 25 MG/1 ML VIAL IV PRN ×2 (15:09)
[2019-08-11] MEDS ORDERED: SILVER NITRATE APPLICATOR 1 APPLIC STICK..EA. 10/PACKAGE TOP ONE (15:28)
--- NOTE | 2019-08-11 16:01 | Operative Report ---
Operative Report DATE OF SURGERY: 08/11/19 PREOPERATIVE DIAGNOSIS: Heavy menstrual bleeding POSTOPERATIVE DIAGNOSIS: Same as above OPERATION: Dilation and currettage. Hysteroscopy. Novasure endometrial ablation SURGEON: MARQUEZ WILLOUGHBY ANESTHESIA: LMAC TISSUE REMOVED OR ALTERED: Endometrial curettings COMPLICATIONS: None ESTIMATED BLOOD LOSS: 10 INTRAOPERATIVE FINDINGS: Fluffy endometrial cavity. Both ostia identified. Good post ablation results PROCEDURE: IV fluids: Crystalloid IV fluids per anesthesia record Disposition: To recovery room in stable condition Description of the procedure: The patient was taken to the operating room where monitored anesthesia was administered and found to be adequate she was then placed in the dorsol lithotomy position and prepped and draped in the usual sterile fashion. A timeout was taken. A bivalve speculum was placed in the vagina and the cervix was brought into good view. A single-tooth tenaculum was used to grasp the anterior lip of the cervix and the cervix was serially dilated. The cervical length was assessed as well as the uterine cavity length. The uterus sounded to approximately 8.5 cm and the cervix was assessed at 3.0 cm length giving us a cavity length of 5.5 cm. The hysteroscope was then inserted and using a saline distention medium the uterine cavity was inspected multiple pictures were obtained. A fluffy endometrium was noted and both ostia were identified. At this point the hysteroscope was removed and curettage was done in a circumferential manner until a gritty texture was noted. The tissue obtained will be sent to the lab as endometrial curettings. The NovaSure device was then advanced through the cervix into the uterine cavity. The device had been previously set for a cavity length of 5.5 cm and once inside the cavity the arms were deployed. Cavity assessment was done and width was determined to be 2.5 cm. Using these settings the NovaSure endometrial ablation was initiated. Once complete, the device was allowed to cool, the arms retracted and then removed. The hysteroscope was then inserted and with a saline distention medium the cavity was inspected once more good chelle was noted in the endometrial cavity pictures were obtained the procedure was then terminated all instrument to re move the patient's vagina. The patient tolerated the procedure well all instrument sponge and needle counts were correct x2 for the procedure she will proceed to recovery room in stable condition
--- NOTE | 2019-08-11 16:02 | Discharge Summary ---
Discharge Summary (SDC) - Discharge Final Diagnosis: AUB: Heavy menstrual bleeding Date of Surgery: 08/11/19 Condition: Stable Treatment or Instructions: Activity as tolerated Diet: regular Expect abnormal vaginal discharge for up to 7-10 days May shower Prescriptions: Ibuprofen [Ibu] 800 mg PO Q8 PRN 15 Days #30 tablet PRN Reason: Hydrocodone/Acetaminophen [[place] 5-325 mg Tablet] 1 tab PO Q6 5 Days #10 tablet Referrals: TWAN GRIJALVA FNP-C [Primary Care Provider] - Discharge Activity: Activity As Tolerated Home Care Assistance: None Needed Report the Following to Your Physician Immediately: Fever over 101 Degrees, Unusual Bleeding, Drainage-Foul Smelling, IV Site Infection Signs
[2019-08-11] MEDS ORDERED: IBUPROFEN 800 MG TABLET ONE (16:37)
[2019-08-11] MEDS ORDERED: OXYCODONE-ACETAMINOPHEN 5-325 MG TABLET ONE (16:37)
[2019-08-11] MEDS ORDERED: ONDANSETRON HCL INJ/PF 4 MG/2 ML SDV ONE (17:12)
[2019-08-11 17:51] VITALS: BP 125/74
[2019-08-11] MEDS ORDERED: ONDANSETRON HCL INJ/PF 4 MG/2 ML SDV IV ONE (18:00)
== END 2019-08-11 17:40 | disposition home or self-care (01) ==
LOC: OROUT 11:11
PROVIDERS: ATTEND Obstetrics & Gynecology
DX: N92.0 Excessive and frequent menstruation with regular cycle (principal); N93.9 Abnormal uterine and vaginal bleeding, unspecified; J45.909 Unspecified asthma, uncomplicated; Z87.891 Personal history of nicotine dependence; Z88.2 Allergy status to sulfonamides; Z88.0 Allergy status to penicillin; Z79.899 Other long term (current) drug therapy; E66.9 Obesity, unspecified; Z68.42 Body mass index [BMI] 45.0-49.9, adult
CPT/HCPCS: 36415; 85027; 81025; 81001; 88305 ×2; 58563; J2250; J3490 ×4; J1170; J2405; J2704; 952; J3010

== ENCOUNTER 2019-09-25 08:27 | Emergency (ER) | payer MEDICAID ==
[2019-09-25 09:49] LABS: BACTERIA (WET MOUNT) 3+ BACTERIA SEEN; EPITHELIALS (WET MOUNT) 3+ EPITHELIALS SEEN; RBCS (WET MOUNT) FEW RBCS SEEN; T.VAGINALIS (WET MOUNT) NO TRICHOMONAS SEEN; WBCS (WET MOUNT) 1+ WBCS SEEN; YEAST (WET MOUNT) NO YEAST SEEN
[2019-09-25 09:55] LABS: APPEARANCE,URINE CLOUDY; BILIRUBIN,URINE NEGATIVE (NEGATIVE); COLOR,URINE YELLOW; GLUCOSE, URINE NEGATIVE (NEGATIVE); KETONES,URINE TRACE mg/dL (NEGATIVE); PROTEIN,URINE 30 mg/dL (NEGATIVE); URINE SPECIFIC GRAVITY 1.026; UROBILINOGEN,URINE NEGATIVE mg/dL (<2.0)
--- NOTE | 2019-09-25 10:57 | ER Document Report ---
HPI - HPI Time Seen by Provider: 09/25/19 10:03 Pain Level: 5 Context: Patient is a 24-year-old female who presents to the emergency department with a chief complaint of vaginal discharge. Her symptoms started 5 days ago. She attempted to use Monistat, because she thought she had a yeast infection. Patient states that she ended up having oral sex with her and he has a chipped tooth and states that he might have scraped her labial area. Patient states that she is unable to see it. - NEURO Neurology: DENIES: Headache - CARDIOVASCULAR Cardiovascular: DENIES: Chest pain - URINARY Urinary: REPORTS: Dysuria, Frequency - REPRODUCTIVE Reproductive: REPORTS: Abnormal bleeding / discharge - white discharge. DENIES: : - DERM Skin Color: Normal Skin Problems: None Past Medical History - Social History Smoking Status: Unknown if Ever Smoked Chew tobacco use (# tins/day): No Frequency of alcohol use: None Drug Abuse: None Family History: Arthritis, DM, Hyperlipidemia, Hypertension, Malignancy, Thyroid Disfunction Patient has suicidal ideation: No Patient has homicidal ideation: No - Past Medical History Cardiac Medical History: Denies: Hx Coronary Artery Disease, Hx Heart Attack, Hx Hypertension, Hx Pulmonary Embolism, Hx Heart Murmur Pulmonary Medical History: Reports: Hx Asthma - prn inhaler, Hx Bronchitis, Hx Pneumonia - Pediatric Denies: Hx COPD, Hx Sleep Apnea, Hx Tuberculosis Neurological Medical History: Denies: Hx Cerebrovascular Accident, Hx Seizures, Hx Parkinson's Disease Endocrine Medical History: Denies: Hx Hyperthyroidism, Hx Hypothyroidism Renal/ Medical History: Reports: Hx Kidney Stones - in teen years. Denies: Hx Ovarian Cysts, Hx Peritoneal Dialysis, Hx Pelvic Inflammatory Disease Malignancy Medical History: Denies: Hx Breast Cancer, Hx Cervical Cancer, Hx Ovarian Cancer GI Medical History: Denies: Hx Gastroesophageal Reflux Disease, Hx Hiatal Hernia, Hx Ulcer Musculoskeletal Medical History: Denies Hx Arthritis, Denies Hx Fibromyalgia, Reports Hx Musculoskeletal Trauma - Fractured knee Psychiatric Medical History: Reports: Hx Anxiety - Panic attacks, Hx Attention Deficit Hyperactivity Disorder, Hx Depression - hx of /not on meds during preg/to resume post Denies: Hx Bipolar Disorder, Hx Post Traumatic Stress Disorder, Hx Schizophrenia Traumatic Medical History: Reports: Hx Fractures - Knee Infectious Medical History: Denies: Hx HIV Past Surgical History: Reports: Hx Section - x4, Hx Cholecystectomy, Hx Oral Surgery - WISDOM, Hx Orthopedic Surgery - removal of ganglion cyst on the dorsal right wrist - Immunizations Immunizations up to date: Yes Hx Diphtheria, Pertussis, Tetanus Vaccination: No Vertical Provider Document - CONSTITUTIONAL Agree With Documented VS: Yes Exam Limitations: No Limitations General Appearance: No Apparent Distress - INFECTION CONTROL TRAVEL OUTSIDE OF THE [place] IN LAST 30 DAYS: No - HEENT HEENT: Atraumatic, Normocephalic, PERRLA - NECK Neck: Normal Inspection - RESPIRATORY Respiratory: No Respiratory Distress - CARDIOVASCULAR Cardiovascular: Regular Rhythm Pulses: Normal: Radial - GI/ABDOMEN Gastrointestinal: Abdomen Soft, Abdomen Tender - Mildly tender mid lower abdomen - REPRODUCTIVE Female Genitalia: Abnormal Inspection Notes: Very small laceration noted to left labia minora. Not repairable. Cervical motion tenderness. - MUSCULOSKELETAL/EXTREMETIES Musculoskeletal/Extremeties: FROM - NEURO Level of Consciousness: Awake, Alert, Appropriate Motor/Sensory: No Motor Deficit, No Sensory Deficit - DERM Integumentary: Warm, Dry, No Rash Course - Re-evaluation Re-evalutation: 09/25/19 11:03 Alma Rosa, PCT at bedside. Cervical motion tenderness noted. Patient will be started on doxycycline and Flagyl. I have very low suspicion for any life- threatening etiology at this time. Follow-up precautions were given. Verbal discharge instructions were given to the patient. They verbalized understanding. They are stable for discharge. - Vital Signs Vital signs: Temp Pulse Resp BP Pulse Ox 98.6 F 114 H 18 133/79 H 98 09/25/19 08:30 09/25/19 08:30 09/25/19 08:30 09/25/19 08:30 09/25/19 08:30 - Laboratory Laboratory results interpreted by me: 09/25/19 09:30 Urine Protein 30 H Urine Ketones TRACE H Leukocyte Esterase Rfl MODERATE H Discharge - Discharge Clinical Impression: PID (acute pelvic inflammatory disease), Bacterial vaginosis Urinary tract infection Qualifiers: Urinary tract infection type: acute cystitis Hematuria presence: without hematuria Qualified Code(s): N30.00 - Acute cystitis without hematuria Condition: Stable Disposition: HOME, SELF-CARE Additional Instructions: You have an overgrowth of natural vaginal bacteria, called bacterial vaginosis. You are being treated with an antibiotic called metronidazole. Do not drink alcohol while taking this medication. Complete all of the antibiotic even if your symptoms have resolved. Return for abdominal pain, vomiting, fever of greater than 101F, or any other symptoms that are worrisome to you. Please follow-up with your MANAGER [facility]ICING or primary care doctor as needed. Your are being treated for pelvic inflammatory disease. You are being started on 2 different antibiotics and you need to take these until you finish them. Please return if you have worsening pain, persistent vomiting, spike a fever greater than 101F, or have any other symptoms that are concerning to you. Please follow closely with you primary care physician or your MANAGER [facility]ICING at your earliest ability. Please do not have sex for the next week. You can take ibuprofen and Tylenol as needed for pain. 600 mg of ibuprofen and 1000 mg of Tylenol every 6 hours as needed. Prescriptions: Doxycycline Hyclate 100 mg PO BID 14 Days #28 capsule Metronidazole [Flagyl 500 mg Tablet] 500 mg PO Q6H #28 tablet Forms: Return to Work Referrals: TWAN GRIJALVA FNP-C [Primary Care Provider] - Follow up as needed
[2019-09-25] MEDS ORDERED: AZITHROMYCIN 250 MG TABLET PO ONE (10:58)
[2019-09-25 11:16] LABS: CHLAM PCR NOT DETECTED (NOT DETECT)
[2019-09-25 11:21] VITALS: BP 132/78
== END 2019-09-25 11:17 | disposition home or self-care (01) ==
LOC: ER 08:27
DX: N30.00 Acute cystitis without hematuria (principal); N73.9 Female pelvic inflammatory disease, unspecified; N76.0 Acute vaginitis; B96.89 Other specified bacterial agents as the cause of diseases classified elsewhere; R30.0 Dysuria; R35.0 Frequency of micturition; J45.909 Unspecified asthma, uncomplicated
CPT/HCPCS: 99283; 87086; 87210; 81025; 81001; 87491; 87591; Q0144

== ENCOUNTER 2019-09-29 20:54 | Emergency (ER) | payer MEDICAID ==
--- NOTE | 2019-09-29 21:23 | ER Document Report ---
ED Medical Screen (RME) - General Stated Complaint: POSSIBLE PILL STUCK ON THROAT Time Seen by Provider: 09/29/19 21:17 Primary Care Provider: TWAN GRIJALVA FNP-C [Primary Care Provider] - Follow up as needed Mode of Arrival: Ambulatory Information source: Patient Notes: 24-year-old female presents emergency department with reports that she swallowed 1 of the pills that she was prescribed this morning at 0900 and feels like it is stuck in her throat. She reports that it is either stuck in her throat or she is cut her throat. Patient is swallowing without any problems. Review of rec ords notes that she was prescribed Flagyl and doxy. Patient was given 30 mL's of fluid and swallowed without any problems. Will do x-ray to ascertain any narrowing of the airway. I have greeted and performed a rapid initial assessment of this patient. A comprehensive ED assessment and evaluation of the patient, analysis of test results and completion of the medical decision making process will be conducted by additional ED providers. TRAVEL OUTSIDE OF THE [place] IN LAST 30 DAYS: No - Related Data Allergies/Adverse Reactions: Penicillins Allergy (Severe, Verified 09/29/19 21:13) Anaphylaxis Sulfa (Sulfonamide Antibiotics) Allergy (Mild, Verified 09/29/19 21:13) Unknown reaction Past Medical History - Past Medical History Cardiac Medical History: Denies: Hx Coronary Artery Disease, Hx Heart Attack, Hx Hypertension, Hx Pulmonary Embolism, Hx Heart Murmur Pulmonary Medical History: Reports: Hx Asthma - prn inhaler, Hx Bronchitis, Hx Pneumonia - Pediatric Denies: Hx COPD, Hx Sleep Apnea, Hx Tuberculosis Neurological Medical History: Denies: Hx Cerebrovascular Accident, Hx Seizures, Hx Parkinson's Disease Endocrine Medical History: Denies: Hx Hyperthyroidism, Hx Hypothyroidism Renal/ Medical History: Reports: Hx Kidney Stones - in teen years. Denies: Hx Ovarian Cysts, Hx Peritoneal Dialysis, Hx Pelvic Inflammatory Disease Malignancy Medical History: Denies: Hx Breast Cancer, Hx Cervical Cancer, Hx Ovarian Cancer GI Medical History: Denies: Hx Gastroesophageal Reflux Disease, Hx Hiatal Hernia, Hx Ulcer Musculoskeltal Medical History: Denies Hx Arthritis, Denies Hx Fibromyalgia, Reports Hx Musculoskeletal Trauma - Fractured knee Psychiatric Medical History: Reports: Hx Anxiety - Panic attacks, Hx Attention Deficit Hyperactivity Disorder, Hx Depression - hx of /not on meds during preg/to resume post Denies: Hx Bipolar Disorder, Hx Post Traumatic Stress Disorder, Hx Schizophrenia Traumatic Medical History: Reports: Hx Fractures - Knee Infectious Medical History: Denies: Hx HIV Past Surgical History: Reports: Hx Section - x4, Hx Cholecystectomy, Hx Oral Surgery - WISDOM, Hx Orthopedic Surgery - removal of ganglion cyst on the dorsal right wrist - Immunizations Immunizations up to date: Yes Hx Diphtheria, Pertussis, Tetanus Vaccination: No Physical Exam - Vital signs Vitals: Temp Pulse Resp BP Pulse Ox 98 F 93 18 145/70 H 997 H 09/29/19 21:07 09/29/19 21:07 09/29/19 21:07 09/29/19 21:07 09/29/19 21:07 Course - Vital Signs Vital signs: Temp Pulse Resp BP Pulse Ox 98 F 93 18 145/70 H 997 H 09/29/19 21:07 09/29/19 21:07 09/29/19 21:07 09/29/19 21:07 09/29/19 21:07 Doctor's Discharge - Discharge Referrals: TWAN GRIJALVA FNP-C [Primary Care Provider] - Follow up as needed
--- NOTE | 2019-09-29 22:30 | RADIOLOGY REPORT (SQ) ---
EXAM DESCRIPTION: [facility]: XR NECK SOFT TISSUE Views: 2 CLINICAL HISTORY: 24 years Female, something stuck? COMPARISON: None. FINDINGS: Glossal ornamental metal is noted projecting in the oral cavity on lateral view, although not seen on the AP view. No additional hyperdense foreign bodies are identified. Epiglottis is normal. No prevertebral edema. No airway narrowing. Bony structures are unremarkable. IMPRESSION: 1. Ornamental metal projecting in the oral cavity, presumably in the tongue. 2. No other hyperdense foreign bodies 3. No acute findings
[2019-09-30] MEDS ORDERED: SUCRALFATE 1 GM TABLET PO ONE (00:52)
--- NOTE | 2019-09-30 00:52 | ER Document Report ---
HPI - HPI Time Seen by Provider: 09/29/19 21:17 Pain Level: 1 Context: Patient is a 24-year-old female that comes to the emergency department for chief complaint of sensation of discomfort in the left side of her throat and her neck. She states that she started having this after she swallowed 1 of her prescribed antibiotics this morning, she is currently on doxycycline and Flagyl for a pelvic infection, she started these several days ago. She denies vomiting, she has been able to eat and drink since but the sensation has not gone away. She had an x-ray in triage for this. She denies any other complaints including sore throat, abdominal pain, chest pain, difficulty breathing. - REPRODUCTIVE Reproductive: DENIES: : Past Medical History - General Information source: Patient - Social History Smoking Status: Former Smoker Frequency of alcohol use: None Drug Abuse: None Lives with: Family Family History: Arthritis, DM, Hyperlipidemia, Hypertension, Malignancy, Thyroid Disfunction Patient has suicidal ideation: No Patient has homicidal ideation: No - Past Medical History Cardiac Medical History: Denies: Hx Coronary Artery Disease, Hx Heart Attack, Hx Hypertension, Hx Pulmonary Embolism, Hx Heart Murmur Pulmonary Medical History: Reports: Hx Asthma - prn inhaler, Hx Bronchitis, Hx Pneumonia - Pediatric Denies: Hx COPD, Hx Sleep Apnea, Hx Tuberculosis Neurological Medical History: Denies: Hx Cerebrovascular Accident, Hx Seizures, Hx Parkinson's Disease Endocrine Medical History: Denies: Hx Hyperthyroidism, Hx Hypothyroidism Renal/ Medical History: Reports: Hx Kidney Stones - in teen years. Denies: Hx Ovarian Cysts, Hx Peritoneal Dialysis, Hx Pelvic Inflammatory Disease Malignancy Medical History: Denies: Hx Breast Cancer, Hx Cervical Cancer, Hx Ovarian Cancer GI Medical History: Denies: Hx Gastroesophageal Reflux Disease, Hx Hiatal Hernia, Hx Ulcer Musculoskeletal Medical History: Denies Hx Arthritis, Denies Hx Fibromyalgia, Reports Hx Musculoskeletal Trauma - Fractured knee Psychiatric Medical History: Reports: Hx Anxiety - Panic attacks, Hx Attention Deficit Hyperactivity Disorder, Hx Depression - hx of /not on meds during preg/to resume post Denies: Hx Bipolar Disorder, Hx Post Traumatic Stress Disorder, Hx Schizophrenia Traumatic Medical History: Reports: Hx Fractures - Knee Infectious Medical History: Denies: Hx HIV Past Surgical History: Reports: Hx Section - x4, Hx Cholecystectomy, Hx Oral Surgery - WISDOM, Hx Orthopedic Surgery - removal of ganglion cyst on the dorsal right wrist - Immunizations Immunizations up to date: Yes Hx Diphtheria, Pertussis, Tetanus Vaccination: No Vertical Provider Document - CONSTITUTIONAL General Appearance: WD/WN, No Apparent Distress - INFECTION CONTROL TRAVEL OUTSIDE OF THE [place] IN LAST 30 DAYS: No - HEENT HEENT: Atraumatic, Normal ENT Exam - Clear airway, normal oropharyngeal exam, tongue ring present but not swollen or tender, unremarkable eyes, ears, ENT exam otherwise, Normocephalic - NECK Neck: Normal Inspection - No tenderness, swelling, or erythema - RESPIRATORY Respiratory: Breath Sounds Normal, No Respiratory Distress. negative: Wheezing - CARDIOVASCULAR Cardiovascular: Regular Rate, Regular Rhythm - GI/ABDOMEN Gastrointestinal: Abdomen Soft, Abdomen Non-Tender - BACK Back: Normal Inspection - MUSCULOSKELETAL/EXTREMETIES Musculoskeletal/Extremeties: MAEW, FROM, Non-Tender - NEURO Level of Consciousness: Awake, Alert, Appropriate Motor/Sensory: No Motor Deficit, No Sensory Deficit - DERM Integumentary: Warm, Dry, No Rash Course - Re-evaluation Re-evalutation: Patient was able to swallow for me without any difficulty, she has not had any vomiting, she has a pain sensation but she was able to sleep and I aroused her when I entered the room. Oropharyngeal exam unremarkable, I did review x-ray from the triage and this shows no free air or concerning finding. Patient smiling and well-appearing. Based on her evaluation I suspect she has an abrasion from the pill but I have a very low suspicion of any emergent etiology. Discussed treatment including Carafate, discussed follow-up and return precautions, patient states appreciation and agreement. Stable at time of discharge. - Vital Signs Vital signs: Temp Pulse Resp BP Pulse Ox 98 F 93 18 145/70 H 997 H 09/29/19 21:07 09/29/19 21:07 09/29/19 21:07 09/29/19 21:07 09/29/19 21:07 Discharge - Discharge Clinical Impression: Throat pain Condition: Stable Disposition: HOME, SELF-CARE Additional Instructions: The x-ray does not show any concerning findings, your evaluation is most consistent with an abrasion to your esophagus from the pill. This does heal with time, I recommend the Carafate as prescribed for the next couple of days. Follow-up with primary care. Return if you worsen including vomiting, inability to swallow, severe worsening pain, difficulty breathing, or any other concerning symptoms. Prescriptions: Sucralfate [Carafate 1 gm Tablet] 1 gm PO QID #20 tablet Referrals: TWAN GRIJALVA FNP-C [Primary Care Provider] - Follow up as needed
[2019-09-30 01:03] VITALS: BP 135/68
== END 2019-09-30 01:05 | disposition home or self-care (01) ==
LOC: ER 20:54
DX: R07.0 Pain in throat (principal); M54.2 Cervicalgia; R13.10 Dysphagia, unspecified; Z87.891 Personal history of nicotine dependence; J45.909 Unspecified asthma, uncomplicated
CPT/HCPCS: 99283; 70360; J3490

== ENCOUNTER 2019-10-14 08:30 | Emergency (ER) | payer MEDICAID ==
[2019-10-14] MEDS ORDERED: KETOROLAC TROMETHAMINE INJ/PF 30 MG/1 ML SDV IV ONE (10:52)
[2019-10-14] MEDS ORDERED: METHOCARBAMOL 750 MG TABLET PO ONE (10:52)
[2019-10-14] MEDS ORDERED: LIDOCAINE 5% (700 MG) TRANSDERMAL ADH..PATCH TP ONE (10:52)
--- NOTE | 2019-10-14 10:58 | ER Document Report ---
ED General - General Chief Complaint: Back Injury Stated Complaint: BACK PAIN Time Seen by Provider: 10/14/19 10:24 Primary Care Provider: TWAN GRIJALVA FNP-C [Primary Care Provider] - Follow up as needed Notes: 24-year-old female presents emergency department complaining of excruciating back pain. Patient states that she was bathing her children when she bent over to rinse 1 of her children she felt a sudden pop in her back and then she had excruciating pain and tingling in her back. States that the pain worsens with movement of her legs or her arms. Denies any bowel or bladder incontinence or dysfunction, states that it hurts when she bears down to have a bowel movement. Denies any numbness or tingling in her legs. Denies any radiation of the pain. States that EMS treated her pain with 100 mcg of fentanyl and it partially relieved her pain for 10 minutes but then the pain returned. Patient has no history of trauma, no history of cancer, no history of immunosuppression, does not use IV drugs, does not self catheterize. Rates her pain as a 10 out of 10. After the popping sensation patient was still able to finish getting her children ready for school and drive her children to school without difficulty. TRAVEL OUTSIDE OF THE [place] IN LAST 30 DAYS: No - Related Data Allergies/Adverse Reactions: Penicillins Allergy (Severe, Verified 09/29/19 21:13) Anaphylaxis Sulfa (Sulfonamide Antibiotics) Allergy (Mild, Verified 09/29/19 21:13) Unknown reaction Home Medications: Vivance Past Medical History - General Information source: Patient - Social History Smoking Status: Never Smoker Frequency of alcohol use: None Drug Abuse: None Family History: Arthritis, DM, Hyperlipidemia, Hypertension, Malignancy, Thyroid Disfunction Patient has suicidal ideation: No Patient has homicidal ideation: No - Past Medical History Cardiac Medical History: Denies: Hx Coronary Artery Disease, Hx Heart Attack, Hx Hypertension, Hx Pulmonary Embolism, Hx Heart Murmur Pulmonary Medical History: Reports: Hx Asthma - prn inhaler, Hx Bronchitis, Hx Pneumonia - Pediatric Denies: Hx COPD, Hx Sleep Apnea, Hx Tuberculosis Neurological Medical History: Denies: Hx Cerebrovascular Accident, Hx Seizures, Hx Parkinson's Disease Endocrine Medical History: Denies: Hx Hyperthyroidism, Hx Hypothyroidism Renal/ Medical History: Reports: Hx Kidney Stones - in teen years. Denies: Hx Ovarian Cysts, Hx Peritoneal Dialysis, Hx Pelvic Inflammatory Disease Malignancy Medical History: Denies: Hx Breast Cancer, Hx Cervical Cancer, Hx Ovarian Cancer GI Medical History: Denies: Hx Gastroesophageal Reflux Disease, Hx Hiatal Hernia, Hx Ulcer Musculoskeletal Medical History: Denies Hx Arthritis, Denies Hx Fibromyalgia, Reports Hx Musculoskeletal Trauma - Fractured knee Psychiatric Medical History: Reports: Hx Anxiety - Panic attacks, Hx Attention Deficit Hyperactivity Disorder, Hx Depression - hx of /not on meds during preg/to resume post Denies: Hx Bipolar Disorder, Hx Post Traumatic Stress Disorder, Hx Schizophrenia Traumatic Medical History: Reports: Hx Fractures - Knee Infectious Medical History: Denies: Hx HIV Past Surgical History: Reports: Hx Section - x4, Hx Cholecystectomy, Hx Oral Surgery - WISDOM, Hx Orthopedic Surgery - removal of ganglion cyst on the dorsal right wrist - Immunizations Immunizations up to date: Yes Hx Diphtheria, Pertussis, Tetanus Vaccination: No Review of Systems - Review of Systems Constitutional: No symptoms reported Musculoskeletal: See HPI, Back pain Neurological/Psychological: See HPI, Tingling - Only in her back. -: Yes All other systems reviewed and negative Physical Exam - Vital signs Vitals: Temp Pulse Resp BP Pulse Ox 98.4 F 84 18 119/56 L 96 10/14/19 08:46 10/14/19 08:46 10/14/19 08:46 10/14/19 08:46 10/14/19 08:46 Interpretation: Normal - Notes Notes: GENERAL: Awake, whimpering when I walk in the room, not producing any tears. Whimpering stops when we start talking. HEAD: Normocephalic, atraumatic EYES: Pupils equal, round and reactive to light, extraocular movements intact. ENT: Oral mucosa moist, tongue midline. NECK: Full range of motion, supple, trachea midline. LUNGS: Clear to auscultation bilaterally, no wheezes, rales or rhonchi, no respiratory distress. HEART: Regular rate and rhythm, no murmurs, gallops, rubs. ABDOMEN: Soft, nontender, nondistended, bowel sounds present in all 4 quadrants. EXTREMITIES: Moves all 4 extremities spontaneously but complains of pain when she is asked to rollover, does not demonstrate any difficulty moving either leg, complains of pain while moving both legs however able to move her legs through full range of motion and with 5 out of 5 muscle strength, 5 out of 5 great toe raising strength bilaterally, no edema, radial and dorsalis pedis pulses 2/4 bilaterally. No cyanosis. NEUROLOGICAL: Alert and oriented x3, normal speech, patellar DTRs 2+ bilaterally. No saddle anesthesia. Sensation intact across the legs diffusely. SKIN: Warm, Dry, normal turgor, no rashes or lesions noted. BACK: No step-offs, no deformities, tenderness palpation of the paraspinal muscles in the lower lumbar region, no midline bony tenderness to palpation. Course - Re-evaluation Re-evalutation: 10/14/19 10:56 No red flag symptoms, no signs of cauda equina, given no history of trauma no indication for x-ray of the back. Patient will be treated conservatively with anti-inflammatories, muscle relaxers and Lidoderm patches. Patient agreeable to this plan. Patient will be discharged to home. Patient will be allowed to use a wheelchair to be discharged as walking causes her pain however she is able to walk. - Vital Signs Vital signs: Temp Pulse Resp BP Pulse Ox 98.4 F 84 18 119/56 L 96 10/14/19 08:46 10/14/19 08:46 10/14/19 08:46 10/14/19 08:46 10/14/19 08:46 Discharge - Discharge Clinical Impression: Acute low back pain Qualifiers: Back pain laterality: bilateral Sciatica presence: without sciatica Qualified Code(s): M54.5 - Low back pain Strain of lumbar paraspinal muscle Qualifiers: Encounter type: initial encounter Qualified Code(s): S39.012A - Strain of muscle, fascia and tendon of lower back, initial encounter Condition: Stable Disposition: HOME, SELF-CARE Additional Instructions: Low Back Pain Three out of every four people will have an episode of disabling back pain during their lifetime. Most commonly the pain is due to straining of the muscles and ligaments in the low back. Usual treatment includes: (1) Rest on a firm surface. Avoid lying on your stomach. (2) Ice pack the painful area. After a few days, gentle heat may be used intermittently to relax the area, or ice packs can be continued. (3) Medication may be needed -- muscle relaxers and antiinflammatory medicines are commonly used. (4) As the back improves, exercises are prescribed to strengthen the back and abdominal muscles. Your doctor will advise you on the proper care for your back at each stage in your recovery. You may be better in a few days -- or healing may take several weeks. If new symptoms of a "herniated disc" (radiation of pain, numbness, or tingling down the back of the leg or weakness in the leg) occur, you should be re-examined. Further testing may be necessary. I want you to take ibuprofen 800 mg every 8 hours as needed for pain. You should put the Lidoderm patch on the most painful area of your back. You may use up to 3 at a time for no more than 12 hours a day. You must leave them off for 12 hours before starting a new one. You may also use the Robaxin 1 to 2 tablets every 8 hours as needed for pain. Prescriptions: Methocarbamol [Robaxin 750 mg Tablet] 1 - 2 tab PO Q8HP PRN #30 tablet PRN Reason: For Back Pain Lidocaine [Lidoderm 5% (700 mg) Transdermal Patch] 1 patch TP DAILY #30 adh..patch Forms: Return to Work Referrals: TWAN GRIJALVA FNP-C [Primary Care Provider] - Follow up as needed
[2019-10-14 11:41] VITALS: BP 114/67
== END 2019-10-14 12:01 | disposition home or self-care (01) ==
LOC: ER 08:30
DX: S39.012A Strain of muscle, fascia and tendon of lower back, initial encounter (principal); X58.XXXA Exposure to other specified factors, initial encounter; R20.2 Paresthesia of skin; J45.909 Unspecified asthma, uncomplicated; F90.9 Attention-deficit hyperactivity disorder, unspecified type; Z79.899 Other long term (current) drug therapy; Z87.892 Personal history of anaphylaxis; Z88.0 Allergy status to penicillin; Z88.2 Allergy status to sulfonamides
CPT/HCPCS: 99283; 96374; J3490 ×2; J1885

== ENCOUNTER 2020-08-11 14:51 | Emergency (ER) | payer MEDICAID ==
--- NOTE | 2020-08-11 15:49 | ER Document Report ---
ED Medical Screen (RME) - General Chief Complaint: Vaginal Bleeding Stated Complaint: VAGINAL BLEEDING, PELVIS PAIN Time Seen by Provider: 08/11/20 15:40 Primary Care Provider: TWAN GRIJALVA FNP-C [Primary Care Provider] - Follow up as needed Notes: Patient is a 25-year-old female with a history of uterine ablations who presents emergency department with brown vaginal bleeding. Patient states that she normally does not get menstrual cycles, but normally has had some spotting. She had sex last night for the first time in a few months. Patient states that she had pain in her uterine area. States that she had more bleeding than her normal. Exam: Tender mid lower abdomen. I have greeted and performed a rapid initial assessment of this patient. A comprehensive ED assessment and evaluation of the patient, analysis of test results and completion of medical decision making process will be conducted by an additional ED providers. TRAVEL OUTSIDE OF THE [place] IN LAST 30 DAYS: No - Related Data Allergies/Adverse Reactions: Penicillins Allergy (Severe, Verified 09/29/19 21:13) Anaphylaxis Sulfa (Sulfonamide Antibiotics) Allergy (Mild, Verified 09/29/19 21:13) Unknown reaction Past Medical History - Past Medical History Cardiac Medical History: Denies: Hx Coronary Artery Disease, Hx Heart Attack, Hx Hypertension, Hx Pulmonary Embolism, Hx Heart Murmur Pulmonary Medical History: Reports: Hx Asthma - prn inhaler, Hx Bronchitis, Hx Pneumonia - Pediatric Denies: Hx COPD, Hx Sleep Apnea, Hx Tuberculosis Neurological Medical History: Denies: Hx Cerebrovascular Accident, Hx Seizures, Hx Parkinson's Disease Endocrine Medical History: Denies: Hx Hyperthyroidism, Hx Hypothyroidism Renal/ Medical History: Reports: Hx Kidney Stones - in teen years. Denies: Hx Ovarian Cysts, Hx Peritoneal Dialysis, Hx Pelvic Inflammatory Disease Malignancy Medical History: Denies: Hx Breast Cancer, Hx Cervical Cancer, Hx Ovarian Cancer GI Medical History: Denies: Hx Gastroesophageal Reflux Disease, Hx Hiatal Hernia, Hx Ulcer Musculoskeltal Medical History: Denies Hx Arthritis, Denies Hx Fibromyalgia, Reports Hx Musculoskeletal Trauma - Fractured knee Psychiatric Medical History: Reports: Hx Anxiety - Panic attacks, Hx Attention Deficit Hyperactivity Disorder, Hx Depression - hx of /not on meds during preg/to resume post Denies: Hx Bipolar Disorder, Hx Post Traumatic Stress Disorder, Hx Schizophrenia Traumatic Medical History: Reports: Hx Fractures - Knee Infectious Medical History: Denies: Hx HIV Past Surgical History: Reports: Hx Section - x4, Hx Cholecystectomy, Hx Oral Surgery - WISDOM, Hx Orthopedic Surgery - removal of ganglion cyst on the dorsal right wrist - Immunizations Immunizations up to date: Yes Hx Diphtheria, Pertussis, Tetanus Vaccination: No Physical Exam - Vital signs Vitals: Temp Pulse Resp BP Pulse Ox 98.1 F 69 20 129/85 H 96 08/11/20 15:13 08/11/20 15:13 08/11/20 15:13 08/11/20 15:13 08/11/20 15:13 Course - Vital Signs Vital signs: Temp Pulse Resp BP Pulse Ox 98.1 F 69 20 129/85 H 96 08/11/20 15:13 08/11/20 15:13 08/11/20 15:13 08/11/20 15:13 08/11/20 15:13 Doctor's Discharge - Discharge Referrals: TWAN GRIJALVA FNP-C [Primary Care Provider] - Follow up as needed
[2020-08-11 16:34] LABS: ABSOLUTE EOSINOPHILS # (AUTO) 0.1 10^3/uL (0.0-0.6); ABSOLUTE LYMPHOCYTES (AUTO) 1.9 10^3/uL (0.5-4.7); ABSOLUTE MONOCYTES (AUTO) 0.5 10^3/uL (0.1-1.4); BASOPHILS % (AUTO) 0.3 % (0-2); EOSINOPHILS % (AUTO) 0.9 % (0-6); HEMATOCRIT 37.6 % (36.0-47.0); HEMOGLOBIN 12.8 g/dL (12.0-15.5); LYMPHOCYTES % (AUTO) 18.2 % (13-45); MEAN CORPUSCULAR HEMOGLOBIN 28.8 pg (27.0-33.4); MEAN CORPUSCULAR HGB CONC 34.1 g/dL (32.0-36.0); MEAN CORPUSCULAR VOLUME 84 fl (80-97); MONOCYTES % (AUTO) 4.5 % (3-13); PLATELET COUNT 278 10^3/uL (150-450); RED BLOOD COUNT 4.45 10^6/uL (3.72-5.28); SEGMENTED NEUTROPHILS % (AUTO) 76.1 % (42-78); TOTAL CELLS COUNTED % (AUTO) 100 %; WHITE BLOOD COUNT 10.6 10^3/uL (4.0-10.5)
[2020-08-11 17:01] LABS: APPEARANCE,URINE CLOUDY; BILIRUBIN,URINE NEGATIVE (NEGATIVE); COLOR,URINE YELLOW; GLUCOSE, URINE NEGATIVE (NEGATIVE); KETONES,URINE NEGATIVE (NEGATIVE); LEUKOCYTE ESTERASE,URINE LARGE (NEGATIVE); NITRITE,URINE NEGATIVE (NEGATIVE); PROTEIN,URINE 100 mg/dL (NEGATIVE); URINE SPECIFIC GRAVITY 1.033; UROBILINOGEN,URINE NEGATIVE mg/dL (<2.0)
[2020-08-11] MEDS ORDERED: ACETAMINOPHEN 325 MG TABLET PO ONE (17:05)
--- NOTE | 2020-08-11 17:06 | ER Document Report ---
ED GI/ - General Chief Complaint: Vaginal Bleeding Stated Complaint: VAGINAL BLEEDING, PELVIS PAIN Time Seen by Provider: 08/11/20 15:40 Primary Care Provider: TWAN GRIJALVA FNP-C [NURSE PRACTITIONER] - Follow up as needed Mode of Arrival: Ambulatory Information source: Patient Notes: 25-year-old female with no previous medical problems presents to the emergency room planing of lower abdominal cramping that started last night. States the pain got worse today. Patient states she had a uterine ablation about a year ago has some persistent brown discharge. Today she started heavily bleeding. States the bleeding is heavier than her normal menstrual cycle. States symptoms after having intercourse last night. States she has not had sex in several weeks. No new partners. No concerns for STDs. Denies any urinary symptoms. States she took ibuprofen earlier today with some relief. TRAVEL OUTSIDE OF THE [place] IN LAST 30 DAYS: No - Related Data Allergies/Adverse Reactions: Penicillins Allergy (Severe, Verified 09/29/19 21:13) Anaphylaxis Sulfa (Sulfonamide Antibiotics) Allergy (Mild, Verified 09/29/19 21:13) Unknown reaction Past Medical History - General Information source: Patient - Social History Smoking Status: Current Every Day Smoker - Patient vapes but does not smoke cigarettes Frequency of alcohol use: None Drug Abuse: None Family History: Arthritis, DM, Hyperlipidemia, Hypertension, Malignancy, Thyroid Disfunction - Past Medical History Cardiac Medical History: Denies: Hx Coronary Artery Disease, Hx Heart Attack, Hx Hypertension, Hx Pulmonary Embolism, Hx Heart Murmur Pulmonary Medical History: Reports: Hx Asthma - prn inhaler, Hx Bronchitis, Hx Pneumonia - Pediatric Denies: Hx COPD, Hx Sleep Apnea, Hx Tuberculosis Neurological Medical History: Denies: Hx Cerebrovascular Accident, Hx Seizures, Hx Parkinson's Disease Endocrine Medical History: Denies: Hx Hyperthyroidism, Hx Hypothyroidism Renal/ Medical History: Reports: Hx Kidney Stones - in teen years. Denies: Hx Ovarian Cysts, Hx Peritoneal Dialysis, Hx Pelvic Inflammatory Disease Malignancy Medical History: Denies: Hx Breast Cancer, Hx Cervical Cancer, Hx Ovarian Cancer GI Medical History: Denies: Hx Gastroesophageal Reflux Disease, Hx Hiatal Hernia, Hx Ulcer Musculoskeletal Medical History: Denies Hx Arthritis, Denies Hx Fibromyalgia, Reports Hx Musculoskeletal Trauma - Fractured knee Psychiatric Medical History: Reports: Hx Anxiety - Panic attacks, Hx Attention D eficit Hyperactivity Disorder, Hx Depression - hx of /not on meds during preg/to resume post Denies: Hx Bipolar Disorder, Hx Post Traumatic Stress Disorder, Hx Schizophrenia Traumatic Medical History: Reports: Hx Fractures - Knee Infectious Medical History: Denies: Hx HIV Past Surgical History: Reports: Hx Section - x4, Hx Cholecystectomy, Hx Oral Surgery - WISDOM, Hx Orthopedic Surgery - removal of ganglion cyst on the dorsal right wrist - Immunizations Immunizations up to date: Yes Hx Diphtheria, Pertussis, Tetanus Vaccination: No Review of Systems - Review of Systems Constitutional: No symptoms reported EENT: No symptoms reported Cardiovascular: No symptoms reported Gastrointestinal: Abdominal pain. denies: Nausea, Vomiting Genitourinary: No symptoms reported Female Genitourinary: Vaginal bleeding Musculoskeletal: No symptoms reported Skin: No symptoms reported Neurological/Psychological: No symptoms reported -: Yes All other systems reviewed and negative Physical Exam - Vital signs Vitals: Temp Pulse Resp BP Pulse Ox 98.1 F 69 20 129/85 H 96 08/11/20 15:13 08/11/20 15:13 08/11/20 15:13 08/11/20 15:13 08/11/20 15:13 - General General appearance: Appears well, Alert In distress: Mild - HEENT Head: Normocephalic, Atraumatic Eyes: Normal Pupils: PERRL Tympanic membrane: Normal Sinus: Normal Nasal: Normal Pharynx: Normal - Respiratory Respiratory status: No respiratory distress Chest status: Nontender Breath sounds: Normal Chest palpation: Normal - Cardiovascular Rhythm: Regular Heart sounds: Normal auscultation Murmur: No - Abdominal Inspection: Normal Distension: No distension Bowel sounds: Normal Tenderness: Tender - Left pelvic tenderness on palpation.. No: Guarding, Rebound Organomegaly: No organomegaly - Genitourinary External exam: Normal Speculum exam: Cervix closed. No: Vaginal discharge, Vaginal lacerations Vaginal bleeding: Mild Bimanuel exam: Normal. No: Cervical motion tender, Adnexal mass, Adnexal ten derness, Uterus enlarged Notes: Minimal bleeding is noted around the cervix. Nonfriable, nontender to palpation. - Neurological Neuro grossly intact: Yes Cognition: Normal Orientation: AAOx4 Tegan Coma Scale Eye Opening: Spontaneous Hudson Coma Scale Verbal: Oriented Hudson Coma Scale Motor: Obeys Commands Hudson Coma Scale Total: 15 Speech: Normal Motor strength normal: LUE, RUE, LLE, RLE Sensory: Normal - Skin Skin Temperature: Warm Skin Moisture: Dry Skin Color: Normal Course - Re-evaluation Re-evalutation: 08/11/20 18:40 Patient is resting comfortably she is pain-free on exam. Pelvic exam completed with Elsa SUZANNE elizondo present as documentation supervisor. Reviewed all lab and ultrasound findings with patient. She was counseled to continue with Tylenol and or Motrin as needed pain. She is to follow-up outpatient with her MEDICAL STAFF COORDINATOR she is to call for an appointment. Patient was given strict return to the emergency room guidelines. Return for any new or worsening symptoms. All questions were answered. Patient verbalized understanding and agrees with plan of care. 08/11/20 22:52 - Vital Signs Vital signs: Temp Pulse Resp BP Pulse Ox 97.9 F 78 20 117/66 98 08/11/20 19:08 08/11/20 19:08 08/11/20 15:13 08/11/20 19:08 08/11/20 19:08 - Laboratory Result Diagrams: 08/11/20 16:00 08/11/20 16:00 Laboratory results interpreted by me: 08/11/20 08/11/20 16:00 16:00 WBC 10.6 H Urine Protein 100 H Urine Blood LARGE H Ur Leukocyte Esterase LARGE H - Diagnostic Test Radiology reviewed: Reports reviewed Discharge - Discharge Clinical Impression: Vaginal bleeding, Cyst of uterus Uterine fibroid Qualifiers: Uterine leiomyoma location: unspecified location Qualified Code(s): D25.9 - Leiomyoma of uterus, unspecified Condition: Stable Disposition: HOME, SELF-CARE Instructions: Dysfunctional Uterine Bleeding ([facility]) Additional Instructions: Tylenol and or Motrin as needed for pain. Follow-up with your MEDICAL STAFF COORDINATOR as discussed. Return to the emergency room for any new or worsening symptoms. Forms: Return to Work Referrals: TWAN GRIJALVA FNP-C [NURSE PRACTITIONER] - Follow up as needed
[2020-08-11 18:05] LABS: CHLAM PCR NOT DETECTED (NOT DETECT)
--- NOTE | 2020-08-11 18:09 | RADIOLOGY REPORT (SQ) ---
EXAM DESCRIPTION: U/S NON OB PEL TV W/DOPPLER IMAGES COMPLETED DATE/TIME: 08/11/2020 5:52 pm REASON FOR STUDY: pelvic pain; vaginal bleeding COMPARISON: 07/08/2019 TECHNIQUE: Dynamic and static grayscale images acquired of the pelvis via transvaginal approach and recorded on PACS. Additional selected color Doppler and spectral images recorded. LIMITATIONS: None. FINDINGS: UTERUS: There appears to be a 2 cm uterine fibroid. There is a 7 x 8 x 5 mm hypoechoic ar ea in the right side of the myometrium. There is no blood flow associated with this. ENDOMETRIAL STRIPE: No focal or generalized thickening. No masses. CERVIX: 1.6 cm. No nabothian cysts. RIGHT OVARY AND DOPPLER: Ovary not seen. LEFT OVARY AND DOPPLER: Ovary not seen. FREE FLUID: None noted. OTHER: No other significant finding. MEASUREMENTS: UTERUS: 7 x 4.3 x 3.1 cm. ENDOMETRIAL STRIPE: 3 mm. RIGHT OVARY: Ovary not seen. LEFT OVARY: Ovary not seen. IMPRESSION: 2 cm uterine fibroid. 8 mm myometrial cyst. TECHNICAL DOCUMENTATION: JOB ID: [id number] 2010 [employer]- All Rights Reserved Rev-02/06 Reading location - IP/workstation name: [email or web address]
[2020-08-11 18:17] LABS: ALBUMIN 4.1 g/dL (3.5-5.0); ALKALINE PHOSPHATASE 82 U/L (38-126); ANION GAP 10 (5-19); ASPARTATE AMINO TRANSFERASE 22 U/L (14-36); BILIRUBIN,DIRECT 0.1 mg/dL (0.0-0.4); BILIRUBIN,TOTAL 0.3 mg/dL (0.2-1.3); BLOOD UREA NITROGEN 16 mg/dL (7-20); CALCIUM 9.7 mg/dL (8.4-10.2); CARBON DIOXIDE 28 mmol/L (22-30); CHLORIDE 103 mmol/L (98-107); GLUCOSE 85 mg/dL (75-110); POTASSIUM 4.5 mmol/L (3.6-5.0); TOTAL PROTEIN 7.4 g/dL (6.3-8.2)
[2020-08-11 19:13] VITALS: BP 117/66
== END 2020-08-11 19:30 | disposition home or self-care (01) ==
LOC: ER 14:51
DX: D25.9 Leiomyoma of uterus, unspecified (principal); N85.8 Other specified noninflammatory disorders of uterus; N93.9 Abnormal uterine and vaginal bleeding, unspecified; R10.2 Pelvic and perineal pain; Z88.0 Allergy status to penicillin; Z88.2 Allergy status to sulfonamides; F17.290 Nicotine dependence, other tobacco product, uncomplicated; J45.909 Unspecified asthma, uncomplicated
CPT/HCPCS: 99284; 36415; 87086; 85025; 81025; 80053; 81001; 87491; 87591; 76830; 93976; J3490

== ENCOUNTER 2020-09-19 20:59 | Emergency (ER) | payer MEDICAID | END 2020-09-19 21:19 | disposition left against medical advice (07) | LOC: ER 20:59 | DX: Z53.21 Procedure and treatment not carried out due to patient leaving prior to being seen by health care provider (principal) ==